=== PATIENT | female | born 1960 | race African-American/Black ===

== ENCOUNTER → 2018-04-26 | Outpatient (CLI) | payer MEDICARE ==
[2018-03-12 11:00] VITALS: BP 184/97
--- NOTE | 2018-05-07 13:23 | RAD ---
DATE: 04/26/2018 EXAM: MAMMO ZULEMA SCREENING BILATERAL HISTORY: Routine screening COMPARISON: 09/02/2016, 01/09/2015 This study was interpreted with the benefit of Computerized Aided Detection (CAD). Breast Density: SCATTERED The breast parenchyma shows scattered fibroglandular densities. Breast parenchyma level B. FINDINGS: 2-D and 3-D tomosynthesis imaging was performed in CC and MLO projections. No new or enlarging breast densities are seen. Benign type calcifications are present. No suspicious microcalcifications are seen. IMPRESSION: Stable mammograms without evidence of malignancy. BI-RADS CATEGORY: 2 BENIGN FINDING(S) RECOMMENDED FOLLOW-UP: 12M 12 MONTH FOLLOW-UP PQRS compliance statement: Patient information was entered into a reminder system with a target due date for the next mammogram. Mammography is a sensitive method for finding small breast cancers, but it does not detect them all and is not a substitute for careful clinical examination. A negative mammogram does not negate a clinically suspicious finding and should not result in delay in biopsying a clinically suspicious abnormality. "Our facility is accredited by the [employer] Mammography Program."
== END | disposition home or self-care (01) ==
LOC: MAMMO 13:45
PROVIDERS: ATTEND Family Medicine
DX: Z12.31 Encounter for screening mammogram for malignant neoplasm of breast (principal)
CPT/HCPCS: 77063; 77067

== ENCOUNTER 2019-07-02 15:01 | Inpatient (IN) | payer MEDICARE ==
[~2019-07-02] VITALS: Ht 175.3 cm; Wt 70.9 kg
[2019-07-02] MEDS ORDERED: ASPIRIN 325 MG TABLET PO ONE (15:15)
[2019-07-02 15:31] LABS: BASO % 1 % (0-3); EOS # 0.1 x10^3/uL (0.0-0.7); EOS % 2 % (0-3); HEMATOCRIT 26.1 % (36.0-47.0); HEMOGLOBIN 8.7 g/dL (12.0-15.5); LYMPH # 1.2 x10^3/uL (1.0-4.8); LYMPH % 26 % (24-48); MEAN CORPUSCULAR HEMOGLOBIN 33 pg (25-35); MEAN CORPUSCULAR HGB CONC 33 g/dL (31-37); MEAN CORPUSCULAR VOLUME 98 fL (79-100); MONO # 0.4 x10^3/uL (0.0-1.1); MONO % 8 % (0-9); NEUT % 64 % (31-73); PLATELET COUNT 185 x10^3/uL (140-400); RED BLOOD COUNT 2.66 x10^6/uL (3.50-5.40); RED CELL DISTRIBUTION WIDTH 13.9 % (11.5-14.5); WHITE BLOOD COUNT 4.7 x10^3/uL (4.0-11.0)
--- NOTE | 2019-07-02 15:40 | PHYS DOC ---
Past Medical History Past Medical History: Diabetes-Type II, GERD, High Cholesterol, Hypertension Past Surgical History: Other Additional Past Surgical Histo: BACK SX Alcohol Use: Occasionally Drug Use: Marijuana Adult General Chief Complaint Chief Complaint: CHEST PAIN HPI HPI Patient is a 59 year old AA female who presents to the emergency department with complaints of left-sided chest pain that radiates down to her stomach and feels like burning for the last 2-1/2 weeks. Patient states that the pain is worse at night when she is lying down. She currently rates her pain as 3 out of 10 on the pain scale, patient states before coming to the emergency room she was seen at urgent care where she was given a GI cocktail. Patient states that the pain has significantly reduced after taking that medication. She reports some shortness of breath, wheezing, and nausea with her pain. She denies any fever, sore throat, headache, vomiting, diarrhea, cough, dysuria, hematuria, increased urinary frequency, or back pain. She states she has a history of high blood pressure, high cholesterol, type 2 diabetes, and GERD. Review of Systems Review of Systems Constitutional: Denies fever or chills [] Eyes: Denies redness, or eye pain [] HENT: Denies nasal congestion or sore throat [] Respiratory: Denies cough or shortness of breath; see HPI[] Cardiovascular: No additional information not addressed in HPI [] GI: Denies vomiting, bloody stools or diarrhea; see HPI : Denies dysuria or hematuria [] Musculoskeletal: Denies back pain or joint pain [] Integument: Denies rash or skin lesions [] Neurologic: Denies headache, focal weakness or sensory changes [] Endocrine: Denies polyuria or polydipsia [] Complete systems were reviewed and found to be within normal limits, except as documented in this note. Current Medications Current Medications Current Medications Medications (Trade) Dose Ordered Sig/Nik Start Time Stop Time Status Last Admin Dose Admin Aspirin (Renetta Aspirin) 325 mg 1X ONCE 07/02/19 15:15 07/02/19 15:20 DC 07/02/19 15:30 325 MG Allergies Allergies Allergies Coded Allergies Type Severity Reaction Last Updated Verified No Known Drug Allergies 03/10/18 No Physical Exam Physical Exam Constitutional: Well developed, well nourished, no acute distress, non-toxic appearance. [] HENT: Normocephalic, atraumatic, bilateral external ears normal, oropharynx moist, no oral exudates, nose normal. [] Eyes: PERRLA, EOMI, conjunctiva normal, no discharge. [] Neck: Normal range of motion, no stridor. [] Cardiovascular:Heart rate regular rhythm, no murmur [] Lungs & Thorax: Bilateral breath sounds clear to auscultation; Respirations even and unlabored, no retractions, no respiratory distress[] Abdomen: Bowel sounds normal, soft, epigastric TTP, no guarding, no rebound tenderness, no masses, no pulsatile masses. [] Skin: Warm, dry, no erythema, no rash. [] Back: No tenderness, no CVA tenderness. [] Extremities: No cyanosis, ROM intact, no edema. [] Neurologic: Alert and oriented X 3, no focal deficits noted. [] Psychologic: Affect normal, judgement normal, mood normal. [] Current Patient Data Vital Signs Vital Signs Date Time Temp Pulse Resp B/P (MAP) Pulse Ox O2 Delivery O2 Flow Rate FiO2 07/02/19 15:17 97.5 70 14 168/91 (116) 99 Room Air 97.5 Lab Values Laboratory Tests Test 07/02/19 15:17 White Blood Count 4.7 x10^3/uL (4.0-11.0) Red Blood Count 2.66 x10^6/uL (3.50-5.40) L Hemoglobin 8.7 g/dL (12.0-15.5) L Hematocrit 26.1 % (36.0-47.0) L Mean Corpuscular Volume 98 fL (79-100) Mean Corpuscular Hemoglobin 33 pg (25-35) Mean Corpuscular Hemoglobin Concent 33 g/dL (31-37) Red Cell Distribution Width 13.9 % (11.5-14.5) Platelet Count 185 x10^3/uL (140-400) Neutrophils (%) (Auto) 64 % (31-73) Lymphocytes (%) (Auto) 26 % (24-48) Monocytes (%) (Auto) 8 % (0-9) Eosinophils (%) (Auto) 2 % (0-3) Basophils (%) (Auto) 1 % (0-3) Neutrophils # (Auto) 3.0 x10^3/uL (1.8-7.7) Lymphocytes # (Auto) 1.2 x10^3/uL (1.0-4.8) Monocytes # (Auto) 0.4 x10^3/uL (0.0-1.1) Eosinophils # (Auto) 0.1 x10^3/uL (0.0-0.7) Basophils # (Auto) 0.0 x10^3/uL (0.0-0.2) Sodium Level 142 mmol/L (136-145) Potassium Level 5.0 mmol/L (3.5-5.1) Chloride Level 110 mmol/L (98-107) H Carbon Dioxide Level 17 mmol/L (21-32) L Anion Gap 15 (6-14) H Blood Urea Nitrogen 58 mg/dL (7-20) H Creatinine 5.1 mg/dL (0.6-1.0) H Estimated GFR (Cockcroft-Gault) 10.5 BUN/Creatinine Ratio 11 (6-20) Glucose Level 151 mg/dL (70-99) H Calcium Level 8.6 mg/dL (8.5-10.1) Magnesium Level 2.0 mg/dL (1.8-2.4) Total Bilirubin 0.4 mg/dL (0.2-1.0) Aspartate Amino Transferase (AST) 103 U/L (15-37) H Alanine Aminotransferase (ALT) 243 U/L (14-59) H Alkaline Phosphatase 131 U/L (46-116) H Creatine Kinase 119 U/L (26-192) Creatine Kinase MB (Mass) 2.8 ng/mL (0.0-3.6) Creatine Kinase MB Relative Index 2.4 % (0-4) Troponin I Quantitative 0.862 ng/mL (0.000-0.055) Total Protein 6.8 g/dL (6.4-8.2) Albumin 3.3 g/dL (3.4-5.0) L Albumin/Globulin Ratio 0.9 (1.0-1.7) L Laboratory Tests 07/02/19 15:17 Laboratory Tests 07/02/19 15:17 EKG EKG 1510- SR leftward axis, prolonged QT, NO STEMI, read by Dr. Del Cid[] Radiology/Procedures Radiology/Procedures PROCEDURE: CHEST PA & LATERAL Chest, PA and Lateral: Technique: PA and lateral views of the chest were obtained. History: Chest pain. Comparison: 03/10/2018. Findings: The heart and pulmonary vasculature appear within normal limits. Mild bibasilar lung airspace opacities likely atelectasis or infiltrates.. The pleural margins are clear. Trace right pleural effusion. Impression: Mild bibasilar lung airspace opacities likely atelectasis or infiltrates.. [] Course & Med Decision Making Course & Med Decision Making Pertinent Labs and Imaging studies reviewed. (See chart for details) 1414-Spoke with Dr. Florez who is the admitting physician, and care was assumed following discussion of patient. Patient's vital signs stable. Patient remains afebrile, appears nontoxic, resp irations even and unlabored. Patient will be admitted to the tele floor. Patient's case and plan of care also discussed with Dr. Del Cid [] Neville Disclaimer Dragon Disclaimer This electronic medical record was generated, in whole or in part, using a voice recognition dictation system. Departure Departure Referrals: THIERNO RODRÍGUEZ MD (PCP) Scripts No Active Prescriptions or Reported Meds PEEWEE KHAN [employer] OFFICE SUPERVISOR Jul 02, 2019 15:40
[2019-07-02 15:41] LABS: PROTHROMBIN TIME PATIENT 13.5 SEC (11.7-14.0)
[2019-07-02 15:44] LABS: CALCIUM 8.6 mg/dL (8.5-10.1); CREATININE 5.1 mg/dL (0.6-1.0); GFR 10.5
[2019-07-02 15:50] LABS: ALBUMIN 3.3 g/dL (3.4-5.0); ALBUMIN/GLOBULIN RATIO 0.9 (1.0-1.7); TOTAL BILIRUBIN 0.4 mg/dL (0.2-1.0); TOTAL PROTEIN 6.8 g/dL (6.4-8.2)
--- NOTE | 2019-07-02 16:07 | RAD ---
Chest, PA and Lateral: Technique: PA and lateral views of the chest were obtained. History: Chest pain. Comparison: 03/10/2018. Findings: The heart and pulmonary vasculature appear within normal limits. Mild bibasilar lung airspace opacities likely atelectasis or infiltrates.. The pleural margins are clear. Trace right pleural effusion. Impression: Mild bibasilar lung airspace opacities likely atelectasis or infiltrates.. Electronically signed by: Isaiah López MD (07/02/2019 4:05 PM) [facility]
[2019-07-02 17:08] LABS: BILIRUBIN,URINE NEGATIVE (NEG); CLARITY,URINE CLEAR; COLOR,URINE YELLOW; NITRITE,URINE NEGATIVE (NEG); PH,URINE 5.5; PROTEIN,URINE >=300 mg/dL (NEG-TRACE); UROBILINOGEN,URINE 0.2 mg/dL (0.2 mg/dL)
[2019-07-02] MEDS ORDERED: FAMOTIDINE 20 MG/2 ML VIAL IVP ONE (17:15)
[2019-07-02 17:19] LABS: SQUAMOUS EPITHELIAL CELL,UR MOD /LPF
[2019-07-02 17:20] LABS: BACTERIA,URINE 0 /HPF (0-FEW)
[2019-07-02 17:25] VITALS: BP 177/93
--- NOTE | 2019-07-02 18:09 | CONS ---
DATE OF CONSULTATION: 07/02/2019 REASONS FOR CONSULTATION: Hypertension and elevated troponin. HISTORY OF PRESENT ILLNESS: The patient is a pleasant 59-year-old woman, who presented to the hospital in the setting of elevated blood pressures and found to have acute renal insufficiency. Her creatinine was elevated at 5.1. Cardiology was asked to evaluate her due to an elevated troponin. She also had some chest discomfort with radiation down her left arm. In the setting of this hypertension and chest pain, she was admitted for further evaluation and treatment. The patient recently moved from [place] for family issues. She denies any prior diagnosis of coronary artery disease or chronic kidney disease. She does have hypertension, diabetes, and gastroesophageal reflux disease. PAST MEDICAL HISTORY: As noted above. SOCIAL HISTORY: The patient denies any alcohol, tobacco, or illicit drug use. She is . FAMILY HISTORY: Noncontributory. REVIEW OF SYSTEMS: Negative for 10 out of 14 systems reviewed, unless otherwise mentioned above in HPI. ALLERGIES: Per the medication record. CURRENT MEDICATIONS: 1. Losartan. 2. Carvedilol. 3. Atorvastatin. 4. Clonidine. 5. Metformin. PHYSICAL EXAMINATION: VITAL SIGNS: Stable with a blood pressure of 160/80, heart rate of 75, respiratory rate of 14. GENERAL: She is alert and oriented, no acute distress. She is thin, ill woman. CARDIAC: Reveals a soft systolic murmur at the right upper sternal border. No obvious murmur, rubs, or gallops. LUNGS: Clear to auscultation. ABDOMEN: Soft, nontender. No abdominal bruits. NEUROLOGIC: No focal deficits. MUSCULOSKELETAL: No trauma. EXTREMITIES: 2+ radial and dorsalis pedis pulses without any edema. DIAGNOSTIC STUDIES: Chest x-ray is unremarkable. EKG is currently pending. Echocardiogram in 2018 revealed normal left ventricular function without any significant valvular abnormalities. IMPRESSION: 1. Acute renal failure, likely secondary to hypertensive nephrosclerosis. 2. History of hypertension. 3. Gastroesophageal reflux disease. 4. Dyslipidemia. RECOMMENDATIONS: We will initiate intravenous fluids and hold her losartan and metformin therapy. Renal consultation is ongoing. We will obtain an echocardiogram and then determine any further course of action. Suspect that her troponin elevation is likely secondary to renal failure and I have low suspicion for an acute coronary syndrome at this time as the patient was not having any symptoms at home prior to presentation over the last 2 weeks. We will continue serial enzymes and EKGs. Thank you for this consultation. DONITA RESTREPO MD DR: NEREIDA/alfredo JOB#: [id number] / [id number]
[2019-07-02] MEDS ORDERED: ATOR20TA58 PO (18:27)
[2019-07-02] MEDS ORDERED: CLON0.2T PO (18:27)
[2019-07-02] MEDS ORDERED: CARV25TA PO (18:27)
[2019-07-02] MEDS ORDERED: METF500T16 PO (18:27)
[2019-07-02] MEDS ORDERED: LOSA100T14 PO (18:27)
[2019-07-02] MEDS: CARVEDILOL 12.5 MG TABLET. PO SCH (19:08)
[2019-07-02] MEDS: IV NORMAL SALINE 1000ML BAG 1,000 ML IV SCH (19:09)
[2019-07-02] MEDS: hydrALAZINE 20 MG/ML VIAL. IVP PRN (19:16)
[2019-07-02 19:40] VITALS: BP 167/97
[2019-07-02 20:15] VITALS: BP 178/103
--- NOTE | 2019-07-02 20:26 | HP ---
ADMIT DATE: 07/02/2019 CHIEF COMPLAINT: Chest pain. HISTORY OF PRESENT ILLNESS: The patient is a pleasant 59-year-old female who I admitted a year or two ago with similar issues. She had chest pain at that time had hypertensive urgency. She states no one has been able to get her blood pressure under control for years, but that I did a relatively good job, but over the past year or so it slowly has crept up again. She has been followed up with her primary care doctor but her pressures seem to be running high. She now has associated chest pain. Her creatinine is also bumped up to 5.1. I discussed the case with Emergency Room physician. We are going to admit the patient and get her pressure down. Consult Cardiology and Nephrology. PAST MEDICAL HISTORY: Hypertension, chronic renal insufficiency, diabetes, back surgery, marijuana use. ALLERGIES: None. FAMILY HISTORY: Diabetes. SOCIAL HISTORY: She does not drink, smoke or take drugs. 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 MEDICATIONS: Reviewed, please refer to the MRAD. REVIEW OF SYSTEMS: GENERAL: No history of weight change, weakness or fevers. SKIN: No bruising, hair changes or rashes. EYES: No blurred, double or loss of vision. NOSE AND THROAT: No history of nosebleeds, hoarseness or sore throat. HEART: No history of palpitations, chest pain or shortness of breath on exertion. LUNGS: Denies cough, hemoptysis, wheezing or shortness of breath. GASTROINTESTINAL: Denies changes in appetite, nausea, vomiting, diarrhea or constipation. GENITOURINARY: No history of frequency, urgency, hesitancy or nocturia. NEUROLOGIC: Denies history of numbness, tingling, tremor or weakness. PSYCHIATRIC: No history of panic, anxiety or depression. ENDOCRINE: No history of heat or cold intolerance, polyuria or polydipsia. EXTREMITIES: Denies muscle weakness, joint pain, pain on walking or stiffness. PHYSICAL EXAMINATION: VITALS: Within normal limits and are stable. GENERAL: No apparent distress. Alert and oriented. HEENT: Normal cephalic atraumatic, external auditory canals are patent EYES: Extraocular muscles are intact, pupils are equally round and reactive to light and accommodation MUSKULOSKELETAL: Well developed, well nourished, good range of motion ENDOCRINE: No thyromegaly was palpated LYMPHATICS: No cervical chain or axillary nodes were noted HEMATOPOIETIC: No bruising NECK: Supple, no JVD, no thyromegaly was noted. LUNGS: Clear to auscultation in all lung mendiola without rhonchi or wheezing. HEART: RRR, S1, S2 present. Peripheral pulses intact, no obvious murmurs were noted. ABDOMEN: Soft, nontender. Positive bowel sounds no organomegaly, normal bowel sounds. EXTREMITIES: Without any cyanosis, clubbing, or edema. Pedal pulses intact, Homans sign is negative. NEUROLOGIC: Normal speech, normal tone. A & O x3, moves all extremities, no obvious focal deficits. PSYCHIATRIC: Normal affect, normal mood. Stable. SKIN: No ulcerations or rashes, good skin turgor, no jaundice. VASCULAR: Good capillary refill, neurovascular bundle appears to be intact. LABORATORY DATA: Hemoglobin is 8.7. Electrolytes: Sodium 142, potassium 5, chloride 110, bicarbonate 17, BUN 58, creatinine 5.1, glucose 151. Troponin 0.8. ASSESSMENT: Hypertensive emergency, [id number] renal failure, elevated troponin and electrolyte disturbance with azotemia, anemia. PLAN: Consult Nephrology. IV fluids, trend her creatinine. Consult Cardiology, serial enzymes, serial EKGs, cardiac monitoring, home meds, deep venous thrombosis prophylaxis. Full code. SUSAN SOLIS DO DR: MORENO/alfredo JOB#: [id number] / [id number]
[2019-07-02] MEDS: cloNIDine HCL 0.2 MG TABLET PO SCH (20:43)
[2019-07-02 21:44] VITALS: BP 156/85
[2019-07-02 23:00] VITALS: BP 172/87
[2019-07-03] VITALS (9 sets, daily range): BP systolic 147–196; BP diastolic 80–104
[2019-07-03] MEDS: hydrALAZINE 20 MG/ML VIAL. IVP PRN ×2 (00:15→05:24)
[2019-07-03] MEDS: LABETALOL 20 MG/4 ML DISP.SYRIN. IVP PRN ×2 (04:12→08:30)
[2019-07-03] MEDS: cloNIDine HCL 0.2 MG TABLET PO SCH ×3 (06:49→20:58)
[2019-07-03] MEDS: IV NORMAL SALINE 1000ML BAG 1,000 ML IV SCH (08:26)
[2019-07-03] MEDS: CARVEDILOL 12.5 MG TABLET. PO SCH ×2 (08:28→17:25)
--- NOTE | 2019-07-03 09:53 | PDOC ---
CARDIOLOGY PROGRESS NOTE SUBJECTIVE: Patient feels poorly. She has bad headache and is hungry. Has not slept. Denies any dyspnea or chest pain. BP difficult to control. OBJECTIVE: Vital Signs/I&O: Vital Signs Date Time Temp Pulse Resp B/P (MAP) Pulse Ox O2 Delivery O2 Flow Rate FiO2 07/03/19 08:30 88 181/91 07/03/19 07:00 98.2 18 97 Room Air 98.2 I & O 07/02/19 07/02/19 07/03/19 15:00 23:00 07:00 Intake Total 240 ml 320 ml Output Total 600 ml Balance 240 ml -280 ml Objective: GEN.: No apparent distress. Alert and oriented. HEENT: Head is normocephalic, atraumatic NECK: Supple. LUNGS: Clear to auscultation. HEART: RRR, S1, S2 present. Peripheral pulses intact ABDOMEN: Soft, nontender. Positive bowel sounds. EXTREMITIES: Without any cyanosis. NEUROLOGIC: Normal speech, normal tone PSYCHIATRIC: Normal affect, normal mood. SKIN: No ulcerations CURRENT MEDICATIONS: Current Medications Medications (Trade) Dose Ordered Sig/Nik Route PRN Reason Start Time Stop Time Status Last Admin Dose Admin Aspirin (Renetta Aspirin) 325 mg 1X ONCE PO 07/02/19 15:15 07/02/19 15:20 DC 07/02/19 15:30 Famotidine (Pepcid Vial) 20 mg 1X ONCE IVP 07/02/19 17:15 07/02/19 17:16 DC 07/02/19 17:19 Hydralazine HCl (Apresoline Inj) 10 mg PRN Q4HRS PRN IVP ELEVATED BP, SEE COMMENTS 07/02/19 18:30 07/03/19 05:24 Labetalol HCl (Normodyne Iv Push) 20 mg PRN Q3HRS PRN IVP HYPERTENSION 07/02/19 18:30 07/03/19 08:30 Sodium Chloride 1,000 ml @ 100 mls/hr Q10H IV 07/02/19 18:30 07/03/19 08:26 Clonidine HCl (Catapres) 0.2 mg TID PO 07/02/19 21:00 07/03/19 06:49 Carvedilol (Coreg) 25 mg BIDWMEALS PO 07/02/19 19:00 07/03/19 08:28 DIAGNOSTIC TESTING: Labs: Laboratory Tests 07/02/19 15:17 Laboratory Tests Test 07/02/19 15:17 07/02/19 16:50 07/03/19 06:10 07/03/19 08:01 White Blood Count 4.7 x10^3/uL (4.0-11.0) Red Blood Count 2.66 x10^6/uL (3.50-5.40) L Hemoglobin 8.7 g/dL (12.0-15.5) L Hematocrit 26.1 % (36.0-47.0) L Mean Corpuscular Volume 98 fL (79-100) Mean Corpuscular Hemoglobin 33 pg (25-35) Mean Corpuscular Hemoglobin Concent 33 g/dL (31-37) Red Cell Distribution Width 13.9 % (11.5-14.5) Platelet Count 185 x10^3/uL (140-400) Neutrophils (%) (Auto) 64 % (31-73) Lymphocytes (%) (Auto) 26 % (24-48) Monocytes (%) (Auto) 8 % (0-9) Eosinophils (%) (Auto) 2 % (0-3) Basophils (%) (Auto) 1 % (0-3) Neutrophils # (Auto) 3.0 x10^3/uL (1.8-7.7) Lymphocytes # (Auto) 1.2 x10^3/uL (1.0-4.8) Monocytes # (Auto) 0.4 x10^3/uL (0.0-1.1) Eosinophils # (Auto) 0.1 x10^3/uL (0.0-0.7) Basophils # (Auto) 0.0 x10^3/uL (0.0-0.2) Prothrombin Time 13.5 SEC (11.7-14.0) Prothromb Time International Ratio 1.1 (0.8-1.1) Activated Partial Thromboplast Time 33 SEC (24-38) Sodium Level 142 mmol/L (136-145) Potassium Level 5.0 mmol/L (3.5-5.1) Chloride Level 110 mmol/L (98-107) H Carbon Dioxide Level 17 mmol/L (21-32) L Anion Gap 15 (6-14) H Blood Urea Nitrogen 58 mg/dL (7-20) H Creatinine 5.1 mg/dL (0.6-1.0) H Estimated GFR (Cockcroft-Gault) 10.5 BUN/Creatinine Ratio 11 (6-20) Glucose Level 151 mg/dL (70-99) H Calcium Level 8.6 mg/dL (8.5-10.1) Total Bilirubin 0.4 mg/dL (0.2-1.0) Aspartate Amino Transf (AST/SGOT) 103 U/L (15-37) H Alkaline Phosphatase 131 U/L (46-116) H Creatine Kinase 119 U/L (26-192) Creatine Kinase MB (Mass) 2.8 ng/mL (0.0-3.6) Creatine Kinase MB Relative Index 2.4 % (0-4) Total Protein 6.8 g/dL (6.4-8.2) Albumin 3.3 g/dL (3.4-5.0) L Albumin/Globulin Ratio 0.9 (1.0-1.7) L Urine Collection Type Unknown Urine Color Yellow Urine Clarity Clear Urine pH 5.5 Urine Specific Remlap 1.020 Urine Protein >=300 mg/dL (NEG-TRACE) Urine Glucose (UA) Negative mg/dL (NEG) Urine Ketones (Stick) Negative mg/dL (NEG) Urine Blood Negative (NEG) Urine Nitrite Negative (NEG) Urine Bilirubin Negative (NEG) Urine Urobilinogen Dipstick 0.2 mg/dL (0.2 mg/dL) Urine Leukocyte Esterase Negative (NEG) Urine RBC 1-2 /HPF (0-2) Urine WBC 1-4 /HPF (0-4) Urine Squamous Epithelial Cells Mod /LPF Urine Bacteria 0 /HPF (0-FEW) Urine Mucus Slight /LPF Cholesterol Level 131 mg/dL (0-200) LDL Cholesterol, Calculated 66 mg/dL (0-100) VLDL Cholesterol, Calculated 21 mg/dL (0-40) Non-HDL Cholesterol Calculated 87 mg/dL (0-129) Cholesterol/HDL Ratio 3.0 Glucose (Fingerstick) 136 mg/dL (70-99) H ASSESSMENT: 1. THEA 2. HTN 3. Elevated troponin PLAN: 1. Continue present meds, added hydralazine 50mg tid 2. Check renal doppler.(Patient is NPO currently) 3. Await nephrology input 4. Repeat EKG 5. Await echo. Thanks. Will follow along. DONITA RESTREPO MD Jul 03, 2019 09:53
--- NOTE | 2019-07-03 10:07 | EKG ---
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
[2019-07-03] MEDS: ACETAMINOPHEN 500 MG TABLET PO PRN ×2 (10:13→19:54)
[2019-07-03 10:58] LABS: BASO % 1 % (0-3); EOS % 0 % (0-3); HEMOGLOBIN 8.6 g/dL (12.0-15.5); LYMPH # 0.8 x10^3/uL (1.0-4.8); LYMPH % 13 % (24-48); MEAN CORPUSCULAR HEMOGLOBIN 32 pg (25-35); MEAN CORPUSCULAR HGB CONC 33 g/dL (31-37); MEAN CORPUSCULAR VOLUME 97 fL (79-100); MONO # 0.3 x10^3/uL (0.0-1.1); MONO % 6 % (0-9); NEUT # 4.7 x10^3/uL (1.8-7.7); NEUT % 80 % (31-73); PLATELET COUNT 187 x10^3/uL (140-400); RED BLOOD COUNT 2.67 x10^6/uL (3.50-5.40); RED CELL DISTRIBUTION WIDTH 14.6 % (11.5-14.5); WHITE BLOOD COUNT 5.8 x10^3/uL (4.0-11.0)
[2019-07-03 11:07] LABS: CALCIUM 8.4 mg/dL (8.5-10.1); CREATININE 4.5 mg/dL (0.6-1.0); GFR 12.1; POTASSIUM 5.1 mmol/L (3.5-5.1)
--- NOTE | 2019-07-03 12:47 | RAD ---
Examination: Ultrasound kidneys HISTORY: History of renal failure COMPARISON: 03/10/2018 FINDINGS: The right kidney measures 13.1 x 4.80 5.0 cm. The left kidney measures 11.8 x 4.5 x 4.5 cm. Echogenic appearing bilateral kidneys. There are multiple cystic structures identified in the right and left kidneys with the largest measuring septated cyst measuring 3 cm in the right kidney .Partially visualized 2 gallstones identified within the gallbladder. Trace bilateral pleural effusions. IMPRESSION: 1. Increased echogenic appearing bilateral kidneys likely medical renal disease. 2. Bilateral renal cysts. There is a septated cyst measuring 3 cm identified in the right kidney similar to prior exam. 3. Cholelithiasis. Electronically signed by: Isaiah López MD (07/03/2019 12:44 PM) [facility]
--- NOTE | 2019-07-03 13:33 | PDOC ---
[facility] PROGRESS NOTE Chief Complaint Chief Complaint Acute renal failure on chronic renal failure Dehydration Probable noncompliance with antihypertensives? Hypertensive emergency, elevated troponin and electrolyte disturbance with azotemia, anemia. History of Present Illness History of Present Illness July 03, 2019 Patient seen and examined Her creatinine is down to 4.5 from 5.1 She is still on IV fluids Chart reviewed Discussed with RN Vitals/I&O Vitals/I&O: Vital Signs Date Time Temp Pulse Resp B/P (MAP) Pulse Ox O2 Delivery O2 Flow Rate FiO2 07/03/19 11:00 97.4 87 18 168/85 (112) 97 Room Air 97.4 I & O 07/02/19 07/02/19 07/03/19 15:00 23:00 07:00 Intake Total 240 ml 320 ml Output Total 600 ml Balance 240 ml -280 ml Physical Exam General: Alert, Oriented X3 Heart: Regular rate, Normal S1 Lungs: Clear Abdomen: Normal bowel sounds, Soft Extremities: No clubbing, No cyanosis Skin: No rashes, No breakdown Labs Labs: Laboratory Tests Test 07/02/19 15:17 07/02/19 16:50 07/02/19 18:15 07/03/19 00:35 White Blood Count 4.7 x10^3/uL (4.0-11.0) Red Blood Count 2.66 x10^6/uL (3.50-5.40) Hemoglobin 8.7 g/dL (12.0-15.5) Hematocrit 26.1 % (36.0-47.0) Mean Corpuscular Volume 98 fL (79-100) Mean Corpuscular Hemoglobin 33 pg (25-35) Mean Corpuscular Hemoglobin Concent 33 g/dL (31-37) Red Cell Distribution Width 13.9 % (11.5-14.5) Platelet Count 185 x10^3/uL (140-400) Neutrophils (%) (Auto) 64 % (31-73) Lymphocytes (%) (Auto) 26 % (24-48) Monocytes (%) (Auto) 8 % (0-9) Eosinophils (%) (Auto) 2 % (0-3) Basophils (%) (Auto) 1 % (0-3) Neutrophils # (Auto) 3.0 x10^3/uL (1.8-7.7) Lymphocytes # (Auto) 1.2 x10^3/uL (1.0-4.8) Monocytes # (Auto) 0.4 x10^3/uL (0.0-1.1) Eosinophils # (Auto) 0.1 x10^3/uL (0.0-0.7) Basophils # (Auto) 0.0 x10^3/uL (0.0-0.2) Prothrombin Time 13.5 SEC (11.7-14.0) Prothromb Time International Ratio 1.1 (0.8-1.1) Activated Partial Thromboplast Time 33 SEC (24-38) Sodium Level 142 mmol/L (136-145) Potassium Level 5.0 mmol/L (3.5-5.1) Chloride Level 110 mmol/L (98-107) Carbon Dioxide Level 17 mmol/L (21-32) Anion Gap 15 (6-14) Blood Urea Nitrogen 58 mg/dL (7-20) Creatinine 5.1 mg/dL (0.6-1.0) Estimated GFR (Cockcroft-Gault) 10.5 BUN/Creatinine Ratio 11 (6-20) Glucose Level 151 mg/dL (70-99) Calcium Level 8.6 mg/dL (8.5-10.1) Magnesium Level 2.0 mg/dL (1.8-2.4) Total Bilirubin 0.4 mg/dL (0.2-1.0) Aspartate Amino Transf (AST/SGOT) 103 U/L (15-37) Alanine Aminotransferase (ALT/SGPT) 243 U/L (14-59) Alkaline Phosphatase 131 U/L (46-116) Creatine Kinase 119 U/L (26-192) Creatine Kinase MB (Mass) 2.8 ng/mL (0.0-3.6) Creatine Kinase MB Relative Index 2.4 % (0-4) Troponin I Quantitative 0.862 ng/mL (0.000-0.055) 0.833 ng/mL (0.000-0.055) 0.750 ng/mL (0.000-0.055) Total Protein 6.8 g/dL (6.4-8.2) Albumin 3.3 g/dL (3.4-5.0) Albumin/Globulin Ratio 0.9 (1.0-1.7) Urine Collection Type Unknown Urine Color Yellow Urine Clarity Clear Urine pH 5.5 Urine Specific [place] 1.020 Urine Protein >=300 mg/dL (NEG-TRACE) Urine Glucose (UA) Negative mg/dL (NEG) Urine Ketones (Stick) Negative mg/dL (NEG) Urine Blood Negative (NEG) Urine Nitrite Negative (NEG) Urine Bilirubin Negative (NEG) Urine Urobilinogen Dipstick 0.2 mg/dL (0.2 mg/dL) Urine Leukocyte Esterase Negative (NEG) Urine RBC 1-2 /HPF (0-2) Urine WBC 1-4 /HPF (0-4) Urine Squamous Epithelial Cells Mod /LPF Urine Bacteria 0 /HPF (0-FEW) Urine Mucus Slight /LPF Test 07/03/19 06:10 07/03/19 08:01 07/03/19 10:45 07/03/19 11:47 Troponin I Quantitative 0.707 ng/mL (0.000-0.055) Triglycerides Level 105 mg/dL (0-150) Cholesterol Level 131 mg/dL (0-200) LDL Cholesterol, Calculated 66 mg/dL (0-100) VLDL Cholesterol, Calculated 21 mg/dL (0-40) Non-HDL Cholesterol Calculated 87 mg/dL (0-129) HDL Cholesterol 44 mg/dL (40-60) Cholesterol/HDL Ratio 3.0 Glucose (Fingerstick) 136 mg/dL (70-99) 111 mg/dL (70-99) White Blood Count 5.8 x10^3/uL (4.0-11.0) Red Blood Count 2.67 x10^6/uL (3.50-5.40) Hemoglobin 8.6 g/dL (12.0-15.5) Hematocrit 26.0 % (36.0-47.0) Mean Corpuscular Volume 97 fL (79-100) Mean Corpuscular Hemoglobin 32 pg (25-35) Mean Corpuscular Hemoglobin Concent 33 g/dL (31-37) Red Cell Distribution Width 14.6 % (11.5-14.5) Platelet Count 187 x10^3/uL (140-400) Neutrophils (%) (Auto) 80 % (31-73) Lymphocytes (%) (Auto) 13 % (24-48) Monocytes (%) (Auto) 6 % (0-9) Eosinophils (%) (Auto) 0 % (0-3) Basophils (%) (Auto) 1 % (0-3) Neutrophils # (Auto) 4.7 x10^3/uL (1.8-7.7) Lymphocytes # (Auto) 0.8 x10^3/uL (1.0-4.8) Monocytes # (Auto) 0.3 x10^3/uL (0.0-1.1) Eosinophils # (Auto) 0.0 x10^3/uL (0.0-0.7) Basophils # (Auto) 0.0 x10^3/uL (0.0-0.2) Sodium Level 141 mmol/L (136-145) Potassium Level 5.1 mmol/L (3.5-5.1) Chloride Level 112 mmol/L (98-107) Carbon Dioxide Level 14 mmol/L (21-32) Anion Gap 15 (6-14) Blood Urea Nitrogen 57 mg/dL (7-20) Creatinine 4.5 mg/dL (0.6-1.0) Estimated GFR (Cockcroft-Gault) 12.1 Glucose Level 127 mg/dL (70-99) Calcium Level 8.4 mg/dL (8.5-10.1) Review of Systems Review of Systems: Complains of weakness denies chest pain Assessment and Plan Assessmemt and Plan Problems Medical Problems: (1) Acute renal failure Status: Acute (2) Elevated troponin Status: Acute Acute renal failure on chronic renal failure Dehydration Probable noncompliance with antihypertensives? Hypertensive emergency, elevated troponin and electrolyte disturbance with azotemia, anemia. Plan Continue IV hydration and trend her creatinine I estimate her GFR to be about 17 right now perhaps even a little lower She is close to needing dialysis Hopefully we can get her cutting down to 3 or lower Nephrology is following Home meds PT OT DVT prophylaxis Full code Appreciate subspecialist input Long-term prognosis guarded Comment Review of Relevant I have reviewed the following items roque (where applicable) has been applied. Medications: Current Medications Medications (Trade) Dose Ordered Sig/Nik Route PRN Reason Start Time Stop Time Status Last Admin Dose Admin Aspirin (Renetta Aspirin) 325 mg 1X ONCE PO 07/02/19 15:15 07/02/19 15:20 DC 07/02/19 15:30 Famotidine (Pepcid Vial) 20 mg 1X ONCE IVP 07/02/19 17:15 07/02/19 17:16 DC 07/02/19 17:19 Hydralazine HCl (Apresoline Inj) 10 mg PRN Q4HRS PRN IVP ELEVATED BP, SEE COMMENTS 07/02/19 18:30 07/03/19 05:24 Labetalol HCl (Normodyne Iv Push) 20 mg PRN Q3HRS PRN IVP HYPERTENSION 07/02/19 18:30 07/03/19 08:30 Sodium Chloride 1,000 ml @ 100 mls/hr Q10H IV 07/02/19 18:30 07/03/19 08:26 Clonidine HCl (Catapres) 0.2 mg TID PO 07/02/19 21:00 07/03/19 06:49 Carvedilol (Coreg) 25 mg BIDWMEALS PO 07/02/19 19:00 07/03/19 08:28 Hydralazine HCl (Apresoline) 50 mg TID PO 07/03/19 09:45 07/03/19 10:05 Acetaminophen (Tylenol) 500 mg PRN Q6HRS PRN PO MILD PAIN / TEMP 07/03/19 10:15 07/03/19 10:13 SUSAN SOLIS III DO Jul 03, 2019 13:33
[2019-07-03] MEDS: SODIUM BICARBONATE IV SCH (15:15)
[2019-07-03] MEDS: STERILE WATER IV SCH (15:15)
[2019-07-03] MEDS: SODIUM CHLORIDE IV SCH (15:15)
[2019-07-03] MEDS: TEMAZEPAM 15 MG CAPSULE PO PRN (22:11)
[2019-07-04] VITALS (9 sets, daily range): BP systolic 182–217; BP diastolic 88–113
--- NOTE | 2019-07-04 01:02 | CONS ---
DATE OF CONSULTATION: REQUESTING PHYSICIAN: Hospitalist. REASON FOR CONSULTATION: Renal failure. HISTORY OF PRESENT ILLNESS: This is a 59-year-old female recently relocated [facility] from [place]. The patient has a history of diabetes mellitus approximately 10 years by her report. She denies history of diabetic retinopathy. She also has a history of longstanding hypertension, which she states is "under better control." Due to increased level of azotemia, Nephrology evaluation is requested. There is no history of NSAID use. PAST MEDICAL HISTORY: Hypertension, chronic kidney disease -- specifics unclear other than Cardiology recalls her creatinine and BUN elevated 2 years prior to this evaluation. Hyperlipidemia. ALLERGIES: None. MEDICATIONS: Reviewed per medication list. FAMILY HISTORY: Noncontributory. SOCIAL HISTORY: The patient resides independently. REVIEW OF SYSTEMS: No headache, sinus problem, nasal drainage, epistaxis, change in vision or hearing. No difficulty swallowing. No fever, chills, cough, sputum production or hemoptysis. No chest pain, shortness of breath, PND, orthopnea, dyspnea on exertion. No abdominal pain. No nausea, vomiting or diarrhea. No seizures or malignancies. PHYSICAL EXAMINATION: GENERAL APPEARANCE: The patient is awake, conversant. HEENT: Clear. NECK: No increased JVD. No thyromegaly, mass or adenopathy. LUNGS: Clear. CARDIAC: Without S3 or rub. ABDOMEN: Soft, nontender, no bruits. EXTREMITIES: Without edema. NEUROLOGIC: Nonfocal, nonlocalized. PSYCHIATRIC: Good attention to detail, appropriate affect. LABORATORY DATA: Hemoglobin 8.6, hematocrit 26%. Sodium 141, potassium 5.1, chloride 112, CO2 of 14, BUN is 57, creatinine 4.5, calcium 8.4. Urinalysis; specific gravity is 1.020, protein greater than 300 mg percent. Ultrasound: Renal ultrasound, right kidney 13.1 cm, left 11.8 cm. No hydronephrosis or hydroureter. IMPRESSION: 1. Renal failure, anticipate chronic on the basis of hypertensive nephrosclerosis and diabetes mellitus. If does not improve, it is end-stage renal disease status. 2. Metabolic acidosis secondary to #1. RECOMMENDATIONS: 1. IV fluid administration includes sodium bicarbonate. 2. Renal ultrasound -- done. 3. A 24-hour urine total protein. 4. If does not improve, we will initiate dialysis. We will follow. THIERNO BELTRE MD DR: NANCY/alfredo JOB#: [id number] / [id number]
[2019-07-04] MEDS: STERILE WATER IV SCH (03:32)
[2019-07-04] MEDS: SODIUM BICARBONATE IV SCH (03:32)
[2019-07-04] MEDS: SODIUM CHLORIDE IV SCH (03:32)
[2019-07-04] MEDS: hydrALAZINE 20 MG/ML VIAL. IVP PRN (03:37)
[2019-07-04] MEDS: ACETAMINOPHEN 500 MG TABLET PO PRN ×2 (05:31→23:08)
[2019-07-04] MEDS: LABETALOL 20 MG/4 ML DISP.SYRIN. IVP PRN (05:31)
[2019-07-04 05:48] LABS: ALBUMIN 2.8 g/dL (3.4-5.0); ALBUMIN/GLOBULIN RATIO 0.9 (1.0-1.7); CREATININE 4.6 mg/dL (0.6-1.0); GFR 11.8; POTASSIUM 4.2 mmol/L (3.5-5.1); TOTAL BILIRUBIN 0.4 mg/dL (0.2-1.0); TOTAL PROTEIN 5.8 g/dL (6.4-8.2)
--- NOTE | 2019-07-04 06:37 | EKG ---
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
[2019-07-04] MEDS: CARVEDILOL 12.5 MG TABLET. PO SCH (09:14)
[2019-07-04] MEDS: cloNIDine HCL 0.2 MG TABLET PO SCH ×3 (09:15→20:24)
--- NOTE | 2019-07-04 09:56 | PDOC ---
MELINA ANGEL MARIA DEL CARMEN 07/04/19 0956: CARDIO Progress Notes Date and Time Date of Service 07/04/19 Time of Evaluation 0950 Subjective Subjective: No shortness of breath, No Palpitations, No Dizziness, Other (burning sensation in chest about 3 am every night) Vitals Vitals Vital Signs Date Time Temp Pulse Resp B/P (MAP) Pulse Ox O2 Delivery O2 Flow Rate FiO2 07/04/19 09:15 229/118 07/04/19 09:15 86 07/04/19 07:00 98.1 22 94 Nasal Cannula 1.0 98.1 Weight Weight [ ] Input and Output Intake and Output Intake and Output 07/04/19 06:59 Intake Total 1605 ml Output Total 300 ml Balance 1305 ml Intake Oral 780 ml IV Total 825 ml Output Urine Total 300 ml Laboratory Labs Laboratory Tests Test 07/03/19 10:45 07/03/19 11:47 07/03/19 17:11 07/03/19 20:57 White Blood Count 5.8 x10^3/uL (4.0-11.0) Red Blood Count 2.67 x10^6/uL (3.50-5.40) Hemoglobin 8.6 g/dL (12.0-15.5) Hematocrit 26.0 % (36.0-47.0) Mean Corpuscular Volume 97 fL (79-100) Mean Corpuscular Hemoglobin 32 pg (25-35) Mean Corpuscular Hemoglobin Concent 33 g/dL (31-37) Red Cell Distribution Width 14.6 % (11.5-14.5) Platelet Count 187 x10^3/uL (140-400) Neutrophils (%) (Auto) 80 % (31-73) Lymphocytes (%) (Auto) 13 % (24-48) Monocytes (%) (Auto) 6 % (0-9) Eosinophils (%) (Auto) 0 % (0-3) Basophils (%) (Auto) 1 % (0-3) Neutrophils # (Auto) 4.7 x10^3/uL (1.8-7.7) Lymphocytes # (Auto) 0.8 x10^3/uL (1.0-4.8) Monocytes # (Auto) 0.3 x10^3/uL (0.0-1.1) Eosinophils # (Auto) 0.0 x10^3/uL (0.0-0.7) Basophils # (Auto) 0.0 x10^3/uL (0.0-0.2) Sodium Level 141 mmol/L (136-145) Potassium Level 5.1 mmol/L (3.5-5.1) Chloride Level 112 mmol/L (98-107) Carbon Dioxide Level 14 mmol/L (21-32) Anion Gap 15 (6-14) Blood Urea Nitrogen 57 mg/dL (7-20) Creatinine 4.5 mg/dL (0.6-1.0) Estimated GFR (Cockcroft-Gault) 12.1 Glucose Level 127 mg/dL (70-99) Calcium Level 8.4 mg/dL (8.5-10.1) Glucose (Fingerstick) 111 mg/dL (70-99) 140 mg/dL (70-99) 141 mg/dL (70-99) Test 07/04/19 03:35 07/04/19 07:34 Sodium Level 143 mmol/L (136-145) Potassium Level 4.2 mmol/L (3.5-5.1) Chloride Level 111 mmol/L (98-107) Carbon Dioxide Level 18 mmol/L (21-32) Anion Gap 14 (6-14) Blood Urea Nitrogen 52 mg/dL (7-20) Creatinine 4.6 mg/dL (0.6-1.0) Estimated GFR (Cockcroft-Gault) 11.8 BUN/Creatinine Ratio 11 (6-20) Glucose Level 113 mg/dL (70-99) Calcium Level 8.0 mg/dL (8.5-10.1) Total Bilirubin 0.4 mg/dL (0.2-1.0) Aspartate Amino Transf (AST/SGOT) 42 U/L (15-37) Alanine Aminotransferase (ALT/SGPT) 138 U/L (14-59) Alkaline Phosphatase 101 U/L (46-116) Total Protein 5.8 g/dL (6.4-8.2) Albumin 2.8 g/dL (3.4-5.0) Albumin/Globulin Ratio 0.9 (1.0-1.7) Glucose (Fingerstick) 157 mg/dL (70-99) Physical Exam HEENT: Neck Supple W Full Motion Chest: Symmetric LUNGS: Clear to Auscultation Heart: S1S2, RRR, murmurs (2/6 systolic murmur ) Assessment Assessment 1. THEA on probable CKD; 24-hour urine in progress. 2. Hypertensive urgency; blood pressure continues to be consistently elevated 3. NSTEMI; peak 0.8. Most probably type II, demand ischemia in the setting of THEA. 4. Hyperlipidemia 5.. Diabetes, II 6. Elevated LFTs 7. GERD; having burning in chest every night about 3am. Recommendations Await echo Renal artery duplex to r/o GRACY Increase hydralazine. Add norvasc. No ACEi, ARB with THEA Add PPI Plan for outpatient echo unless echo significantly abnormal. DONITA RESTREPO MD 07/04/192036: CARDIO Progress Notes Plan Plan Patient seen and examined. Agree with above nurse practitioner note. I had a long discussion today with the patient regarding her echo findings and the possibility of requiring further cardiac evaluation with a coronary angiography in the setting of her acute renal failure. Current plans are for initiation of dialysis. If the patient is willing after initiation of dialysis we could consider cardiac catheterization on July 07. Otherwise, we will plan for outpatient ischemic testing or outpatient cardiac catheterization to evaluate her cardio myopathy which I suspect is mostly related to her end-stage renal disease and uncontrolled hypertension but given her risk factors we cannot rule out any occult ischemic heart disease. MELINA ANGEL APRN Jul 04, 2019 09:56 DONITA RESTREPO MD Jul 04, 2019 20:37
[2019-07-04] MEDS: LABETALOL HCL 100 MG TABLET. PO SCH ×2 (11:10→20:24)
[2019-07-04] MEDS: amLODIPine BESYLATE 5 MG TABLET PO SCH (11:11)
[2019-07-04] MEDS: PANTOPRAZOLE 40 MG TABLET.DR. PO SCH (11:11)
--- NOTE | 2019-07-04 12:31 | NUR ---
SS following for discharge planning. SS reviewed pt chart. Pt is from home and is currently on room air. Pt's RN reported that pt may need OPHD. SS requested that serology labs and chest x-ray be ordered if OPHD set up is needed. SS will continue to follow for discharge planning.
--- NOTE | 2019-07-04 12:55 | PDOC ---
[facility] [facility] PROGRESS NOTE Chief Complaint Chief Complaint Acute renal failure on chronic renal failure Dehydration Probable noncompliance with antihypertensives? Hypertensive emergency, elevated troponin and electrolyte disturbance with azotemia, anemia. History of Present Illness History of Present Illness July 03, 2019 Patient seen and examined Her creatinine is down to 4.5 from 5.1 She is still on IV fluids Chart reviewed Discussed with RN 07/04/19 Patient seen and examined Her creatinine actually went up to 4.6 24-hour urine in progress Chart reviewed Discussed with RN She is going need dialysis either this admit or soon Vitals/I&O Vitals/I&O: Vital Signs Date Time Temp Pulse Resp B/P (MAP) Pulse Ox O2 Delivery O2 Flow Rate FiO2 07/04/19 11:11 216/112 07/04/19 11:10 79 07/04/19 10:43 97.8 20 96 Nasal Cannula 2.0 97.8 I & O 07/03/19 07/03/19 07/04/19 15:00 23:00 07:00 Intake Total 1005 ml 600 ml Output Total 100 ml 200 ml Balance 905 ml 400 ml Physical Exam General: Alert, Oriented X3 Heart: Regular rate, Normal S1 Lungs: Clear Abdomen: Normal bowel sounds, Soft Extremities: No clubbing, No cyanosis Skin: No rashes, No breakdown Labs Labs: Laboratory Tests Test 07/03/19 17:11 07/03/19 20:57 07/04/19 03:35 07/04/19 07:34 Glucose (Fingerstick) 140 mg/dL (70-99) 141 mg/dL (70-99) 157 mg/dL (70-99) Sodium Level 143 mmol/L (136-145) Potassium Level 4.2 mmol/L (3.5-5.1) Chloride Level 111 mmol/L (98-107) Carbon Dioxide Level 18 mmol/L (21-32) Anion Gap 14 (6-14) Blood Urea Nitrogen 52 mg/dL (7-20) Creatinine 4.6 mg/dL (0.6-1.0) Estimated GFR (Cockcroft-Gault) 11.8 BUN/Creatinine Ratio 11 (6-20) Glucose Level 113 mg/dL (70-99) Calcium Level 8.0 mg/dL (8.5-10.1) Total Bilirubin 0.4 mg/dL (0.2-1.0) Aspartate Amino Transf (AST/SGOT) 42 U/L (15-37) Alanine Aminotransferase (ALT/SGPT) 138 U/L (14-59) Alkaline Phosphatase 101 U/L (46-116) Total Protein 5.8 g/dL (6.4-8.2) Albumin 2.8 g/dL (3.4-5.0) Albumin/Globulin Ratio 0.9 (1.0-1.7) Test 07/04/19 11:12 07/04/19 11:13 D-Dimer (Cary) 1.05 ug/mlFEU (0.00-0.50) Glucose (Fingerstick) 139 mg/dL (70-99) Assessment and Plan Assessmemt and Plan Problems Medical Problems: (1) Acute renal failure Status: Acute (2) Elevated troponin Status: Acute Acute renal failure on chronic renal failure Dehydration Probable noncompliance with antihypertensives? Hypertensive emergency, elevated troponin and electrolyte disturbance with azotemia, anemia. Plan Await 24-hour urine I estimate her GFR to be about 17 right now perhaps even a little lower She is close to needing dialysis Hopefully we can get her cutting down to 3 or lower Nephrology is following Home meds PT OT DVT prophylaxis Full code Appreciate subspecialist input Long-term prognosis guarded Comment Review of Relevant I have reviewed the following items roque (where applicable) has been applied. Medications: Current Medications Medications (Trade) Dose Ordered Sig/Nik Route PRN Reason Start Time Stop Time Status Last Admin Dose Admin Temazepam (Restoril) 15 mg PRN QHS PRN PO INSOMNIA 07/03/19 14:15 07/03/19 22:11 Sodium Chloride 38.5 meq/Sodium Bicarbonate 100 meq/Sterile Water 1,109.625 ml @ 100 mls/hr Q11H6M IV 07/03/19 15:00 07/04/19 03:32 Pantoprazole Sodium (Protonix) 40 mg DAILYAC PO 07/04/19 10:00 07/04/19 11:11 Labetalol HCl (Trandate) 100 mg BID PO 07/04/19 10:30 07/04/19 11:10 Amlodipine Besylate (Norvasc) 5 mg DAILY PO 07/04/19 10:30 07/04/19 11:11 SUSAN SOLIS III DO Jul 04, 2019 12:55
--- NOTE | 2019-07-04 14:02 | RAD ---
MR#: [id number] Date of Study: 07/04/2019 Ordering Physician: MELINA ANGEL, Referring Physician: MELINA ANGEL, Tech: Guzman Mora MBA, RDMS, RVT, RDCS, RTR APPROVED REPORT Patient Location: IN-PATIENT Indications Uncontrolled HTN Renal Artery Doppler Right Renal Artery Left Renal Arter y Proximal 85.0/28.0 cm/secProximal 71.0/16.0 cm/sec Mid 43.0/10.0 cm/secMid 55.0/13.0 cm/sec Distal 54.0/10.0 cm/secDistal 30.0/7.0 cm/sec Renal/Aorta Ratio 1.10Renal/Aorta Ratio 0.92 Prox. Resistive Index 0.67Prox. Resistive Index 0.78 Mid Resistive Index 0.77Mid Resistive Index 0.76 Distal Resistive Index 0.81Distal Resistive Index 0.76 Rt. Segmental A. 31.0/9.0 cm/secLt. Segmental A. 31.0/7.0 cm/sec Renal Measurements RightLeft Kidney Zrgxcc62.9 cm cmKidney Ickhdz67.7 cm cm Right Additional FindingsLeft Additional Findings Findings The abdominal aorta has mild diffuse irregularities without any obvious aneurysmal dilatation. Please see accompanying renal ultrasound for full details regarding parenchymal evaluation Spectral waveforms and color Doppler involving the proximal, mid and distal renal arteries are within normal limits. Normal renal to aortic ratios bilaterally. Normal renal size bilaterally. Critical Notification Critical Value: No <Conclusion> No significant renal arterial stenosis identified Signed by : Ventura Pisano, Electronically Approved : 07/04/2019 14:01:26
--- NOTE | 2019-07-04 14:51 | CARD ---
MR#: [id number] Date of Study: 07/04/2019 Ordering Physician: DONITA RESTREPO, Referring Physician: DONITA RESTREPO, Tech: Selam Sandhu APPROVED REPORT EXAM: Two-dimensional and M-mode echocardiogram with Doppler and color Doppler. Other Information Quality : GoodHR: 83bpm INDICATION Chest Pain RISK FACTORS Hypertension Hyperlipidemia Diabetes 2D DIMENSIONS RVDd3.3 (2.9-3.5cm)Left Atrium(2D)3.8 (1.6-4.0cm) IVSd1.5 (0.7-1.1cm)Aortic Root(2D)2.8 (2.0-3.7cm) LVDd5.7 (3.9-5.9cm)LVOT Diameter2.1 (1.8-2.4cm) PWd1.4 (0.7-1.1cm)LVDs3.8 (2.5-4.0cm) FS (%) 33.2 %SV97.5 ml LVEF(%)61.0 (>50%) Aortic Valve AoV Peak Riley.220.5cm/sAoV VTI38.0cm AO Peak GR.19.5mmHgLVOT Peak Riley.129.7cm/s LVOT VTI 24.94cmAO Mean GR.11mmHg HANK (VMAX)1.32fb6EKB (VTI)2.27cm2 Mitral Valve MV E Osymffdx88.2cm/sMV DECEL [id number] MV A Lyattxzr00.2cm/sMV E Mean Gr.2mmHg MV UMZ74wiM/A Ratio0.8 MVA (PHT)5.44cm2 TDI E/Lateral E'15.3E/Medial E'11.7 Pulmonary Valve PV Peak Qdgvrgyx53.9cm/sPV Peak Grad.3mmHg Tricuspid Valve TR P. Nwadhjby027bg/sRAP [id number] TR Peak Gr.08eiIoYSUJ36ahGv Pulmonary Vein S1 Nkhewlqk91.5cm/sD2 Nginzsyv18.1cm/s PVa [id number] LEFT VENTRICLE The Left Ventricle is borderline dilated. There is moderate concentric left ventricular hypertrophy. Hypokinesis of mid to distal anterior and anteroseptal thapa and also the apical wall. The Ejection F raction is 40%. Transmitral Doppler flow pattern is Grade I-abnormal relaxation pattern. RIGHT VENTRICLE The right ventricle is normal size. There is normal right ventricular wall thickness. The right ventr icular systolic function is normal. ATRIA The left atrium is borderline dilated. The right atrium size is normal. The interatrial septum is int act with no evidence for an atrial septal defect or patent foramen ovale as noted on 2-D or Doppler i maging. AORTIC VALVE The aortic valve is thickened but opens well. Doppler and Color Flow revealed trace aortic regurgitat ion. There is no significant aortic valvular stenosis. MITRAL VALVE The mitral valve is thickened but opens well. There is no evidence of mitral valve prolapse. There is no mitral valve stenosis. Doppler and Color-flow revealed trace mitral regurgitation. TRICUSPID VALVE The tricuspid valve is normal in structure and function. Doppler and Color Flow revealed mild to mode rate tricuspid regurgitation with an estimated PAP of 51 mmHg. There is no tricuspid valve stenosis. PULMONIC VALVE The pulmonic valve is not well visualized. Doppler and Color Flow revealed no pulmonic valvular regur gitation. GREAT VESSELS The aortic root is normal in size. The IVC is normal in size and collapses >50% with inspiration. PERICARDIAL EFFUSION There is no evidence of significant pericardial effusion. Critical Notification Critical Value: No <Conclusion> Hypokinesis of mid to distal anterior and anteroseptal thapa and also the apical wall. The Ejection Fraction is 40%. Transmitral Doppler flow pattern is Grade I-abnormal relaxation pattern. Trace mitral regurgitation. Mild to moderate tricuspid regurgitation with an estimated PAP of 51 mmHg. There is no evidence of significant pericardial effusion. Signed by : Harris Hallman, Electronically Approved : 07/04/2019 14:50:42
--- NOTE | 2019-07-04 14:57 | PDOC ---
PROGRESS NOTES Subjective Subjective SEEN IN FOLLOW UP OF RENAL FAILURE Objective Objective Vital Signs Date Time Temp Pulse Resp B/P (MAP) Pulse Ox O2 Delivery O2 Flow Rate FiO2 07/04/19 14:46 200/109 07/04/19 11:10 79 07/04/19 10:43 97.8 20 96 Nasal Cannula 2.0 97.8 Intake and Output 07/04/19 07:00 Intake Total 1605 ml Output Total 300 ml Balance 1305 ml Intake Oral 780 ml IV Total 825 ml Output Urine Total 300 ml Physical Exam Abdomen: Normal bowel sounds, Soft, No tenderness, No hepatosplenomegaly, No masses Heart: Regular rate, Normal S1, Normal S2, No murmurs, Gallops Extremities: No clubbing, No cyanosis, No edema, Normal pulses, No tenderness/swelling General: Alert, Oriented X3, Cooperative, No acute distress Lungs: Clear to auscultation, Normal air movement Neuro: Normal gait, Normal speech, Normal tone, Sensation intact, Reflexes 2+ Psych/Mental Status: Mental status NL, Mood NL Diagnosis RENAL FAILURE: ESRD Assessment Assessment Problems Medical Problems: (1) Acute renal failure Status: Acute (2) Elevated troponin Status: Acute Plan Plan of Care RENAL US IS OK WITHOUT OBSTRUCTION. KIDNEYS STILL GOOD SIZE. GFR IS ESRD RANGE. SHE IS AGREEABLE TO DIALYSIS. WILL HAVE PERMCATH PLACED TODAY AND DIALYSIS TOMORROW AND THURSDAY Comment Review of Relevant I have reviewed the following items roque (where applicable) has been applied. Labs Laboratory Tests Test 07/02/19 15:17 07/02/19 16:50 07/02/19 18:15 07/03/19 00:35 White Blood Count 4.7 x10^3/uL (4.0-11.0) Red Blood Count 2.66 x10^6/uL (3.50-5.40) Hemoglobin 8.7 g/dL (12.0-15.5) Hematocrit 26.1 % (36.0-47.0) Mean Corpuscular Volume 98 fL (79-100) Mean Corpuscular Hemoglobin 33 pg (25-35) Mean Corpuscular Hemoglobin Concent 33 g/dL (31-37) Red Cell Distribution Width 13.9 % (11.5-14.5) Platelet Count 185 x10^3/uL (140-400) Neutrophils (%) (Auto) 64 % (31-73) Lymphocytes (%) (Auto) 26 % (24-48) Monocytes (%) (Auto) 8 % (0-9) Eosinophils (%) (Auto) 2 % (0-3) Basophils (%) (Auto) 1 % (0-3) Neutrophils # (Auto) 3.0 x10^3/uL (1.8-7.7) Lymphocytes # (Auto) 1.2 x10^3/uL (1.0-4.8) Monocytes # (Auto) 0.4 x10^3/uL (0.0-1.1) Eosinophils # (Auto) 0.1 x10^3/uL (0.0-0.7) Basophils # (Auto) 0.0 x10^3/uL (0.0-0.2) Prothrombin Time 13.5 SEC (11.7-14.0) Prothromb Time International Ratio 1.1 (0.8-1.1) Activated Partial Thromboplast Time 33 SEC (24-38) Sodium Level 142 mmol/L (136-145) Potassium Level 5.0 mmol/L (3.5-5.1) Chloride Level 110 mmol/L (98-107) Carbon Dioxide Level 17 mmol/L (21-32) Anion Gap 15 (6-14) Blood Urea Nitrogen 58 mg/dL (7-20) Creatinine 5.1 mg/dL (0.6-1.0) Estimated GFR (Cockcroft-Gault) 10.5 BUN/Creatinine Ratio 11 (6-20) Glucose Level 151 mg/dL (70-99) Calcium Level 8.6 mg/dL (8.5-10.1) Magnesium Level 2.0 mg/dL (1.8-2.4) Total Bilirubin 0.4 mg/dL (0.2-1.0) Aspartate Amino Transf (AST/SGOT) 103 U/L (15-37) Alanine Aminotransferase (ALT/SGPT) 243 U/L (14-59) Alkaline Phosphatase 131 U/L (46-116) Creatine Kinase 119 U/L (26-192) Creatine Kinase MB (Mass) 2.8 ng/mL (0.0-3.6) Creatine Kinase MB Relative Index 2.4 % (0-4) Troponin I Quantitative 0.862 ng/mL (0.000-0.055) 0.833 ng/mL (0.000-0.055) 0.750 ng/mL (0.000-0.055) Total Protein 6.8 g/dL (6.4-8.2) Albumin 3.3 g/dL (3.4-5.0) Albumin/Globulin Ratio 0.9 (1.0-1.7) Urine Collection Type Unknown Urine Color Yellow Urine Clarity Clear Urine pH 5.5 Urine Specific Esmond 1.020 Urine Protein >=300 mg/dL (NEG-TRACE) Urine Glucose (UA) Negative mg/dL (NEG) Urine Ketones (Stick) Negative mg/dL (NEG) Urine Blood Negative (NEG) Urine Nitrite Negative (NEG) Urine Bilirubin Negative (NEG) Urine Urobilinogen Dipstick 0.2 mg/dL (0.2 mg/dL) Urine Leukocyte Esterase Negative (NEG) Urine RBC 1-2 /HPF (0-2) Urine WBC 1-4 /HPF (0-4) Urine Squamous Epithelial Cells Mod /LPF Urine Bacteria 0 /HPF (0-FEW) Urine Mucus Slight /LPF Test 07/03/19 06:10 07/03/19 08:01 07/03/19 10:45 07/03/19 11:47 Troponin I Quantitative 0.707 ng/mL (0.000-0.055) Triglycerides Level 105 mg/dL (0-150) Cholesterol Level 131 mg/dL (0-200) LDL Cholesterol, Calculated 66 mg/dL (0-100) VLDL Cholesterol, Calculated 21 mg/dL (0-40) Non-HDL Cholesterol Calculated 87 mg/dL (0-129) HDL Cholesterol 44 mg/dL (40-60) Cholesterol/HDL Ratio 3.0 Glucose (Fingerstick) 136 mg/dL (70-99) 111 mg/dL (70-99) White Blood Count 5.8 x10^3/uL (4.0-11.0) Red Blood Count 2.67 x10^6/uL (3.50-5.40) Hemoglobin 8.6 g/dL (12.0-15.5) Hematocrit 26.0 % (36.0-47.0) Mean Corpuscular Volume 97 fL (79-100) Mean Corpuscular Hemoglobin 32 pg (25-35) Mean Corpuscular Hemoglobin Concent 33 g/dL (31-37) Red Cell Distribution Width 14.6 % (11.5-14.5) Platelet Count 187 x10^3/uL (140-400) Neutrophils (%) (Auto) 80 % (31-73) Lymphocytes (%) (Auto) 13 % (24-48) Monocytes (%) (Auto) 6 % (0-9) Eosinophils (%) (Auto) 0 % (0-3) Basophils (%) (Auto) 1 % (0-3) Neutrophils # (Auto) 4.7 x10^3/uL (1.8-7.7) Lymphocytes # (Auto) 0.8 x10^3/uL (1.0-4.8) Monocytes # (Auto) 0.3 x10^3/uL (0.0-1.1) Eosinophils # (Auto) 0.0 x10^3/uL (0.0-0.7) Basophils # (Auto) 0.0 x10^3/uL (0.0-0.2) Sodium Level 141 mmol/L (136-145) Potassium Level 5.1 mmol/L (3.5-5.1) Chloride Level 112 mmol/L (98-107) Carbon Dioxide Level 14 mmol/L (21-32) Anion Gap 15 (6-14) Blood Urea Nitrogen 57 mg/dL (7-20) Creatinine 4.5 mg/dL (0.6-1.0) Estimated GFR (Cockcroft-Gault) 12.1 Glucose Level 127 mg/dL (70-99) Calcium Level 8.4 mg/dL (8.5-10.1) Test 07/03/19 17:11 07/03/19 20:57 07/04/19 03:35 07/04/19 07:34 Glucose (Fingerstick) 140 mg/dL (70-99) 141 mg/dL (70-99) 157 mg/dL (70-99) Sodium Level 143 mmol/L (136-145) Potassium Level 4.2 mmol/L (3.5-5.1) Chloride Level 111 mmol/L (98-107) Carbon Dioxide Level 18 mmol/L (21-32) Anion Gap 14 (6-14) Blood Urea Nitrogen 52 mg/dL (7-20) Creatinine 4.6 mg/dL (0.6-1.0) Estimated GFR (Cockcroft-Gault) 11.8 BUN/Creatinine Ratio 11 (6-20) Glucose Level 113 mg/dL (70-99) Calcium Level 8.0 mg/dL (8.5-10.1) Total Bilirubin 0.4 mg/dL (0.2-1.0) Aspartate Amino Transf (AST/SGOT) 42 U/L (15-37) Alanine Aminotransferase (ALT/SGPT) 138 U/L (14-59) Alkaline Phosphatase 101 U/L (46-116) Total Protein 5.8 g/dL (6.4-8.2) Albumin 2.8 g/dL (3.4-5.0) Albumin/Globulin Ratio 0.9 (1.0-1.7) Test 07/04/19 11:12 07/04/19 11:13 D-Dimer (Cary) 1.05 ug/mlFEU (0.00-0.50) Glucose (Fingerstick) 139 mg/dL (70-99) Laboratory Tests Test 07/03/19 17:11 07/03/19 20:57 07/04/19 03:35 07/04/19 07:34 Glucose (Fingerstick) 140 mg/dL (70-99) 141 mg/dL (70-99) 157 mg/dL (70-99) Sodium Level 143 mmol/L (136-145) Potassium Level 4.2 mmol/L (3.5-5.1) Chloride Level 111 mmol/L (98-107) Carbon Dioxide Level 18 mmol/L (21-32) Anion Gap 14 (6-14) Blood Urea Nitrogen 52 mg/dL (7-20) Creatinine 4.6 mg/dL (0.6-1.0) Estimated GFR (Cockcroft-Gault) 11.8 BUN/Creatinine Ratio 11 (6-20) Glucose Level 113 mg/dL (70-99) Calcium Level 8.0 mg/dL (8.5-10.1) Total Bilirubin 0.4 mg/dL (0.2-1.0) Aspartate Amino Transf (AST/SGOT) 42 U/L (15-37) Alanine Aminotransferase (ALT/SGPT) 138 U/L (14-59) Alkaline Phosphatase 101 U/L (46-116) Total Protein 5.8 g/dL (6.4-8.2) Albumin 2.8 g/dL (3.4-5.0) Albumin/Globulin Ratio 0.9 (1.0-1.7) Test 07/04/19 11:12 07/04/19 11:13 D-Dimer (Cary) 1.05 ug/mlFEU (0.00-0.50) Glucose (Fingerstick) 139 mg/dL (70-99) Medications Current Medications Aspirin (Renetta Aspirin) 325 mg 1X ONCE PO Last administered on 07/02/19at 15:30; Start 07/02/19 at 15:15; Stop 07/02/19 at 15:20; Status DC Famotidine (Pepcid Vial) 20 mg 1X ONCE IVP Last administered on 07/02/19at 17:19; Start 07/02/19 at 17:15; Stop 07/02/19 at 17:16; Status DC Hydralazine HCl (Apresoline Inj) 10 mg PRN Q4HRS PRN IVP ELEVATED BP, SEE COMMENTS Last administered on 07/04/19at 03:37; Start 07/02/19 at 18:30 Labetalol HCl (Normodyne Iv Push) 20 mg PRN Q3HRS PRN IVP HYPERTENSION Last administered on 07/04/19at 05:31; Start 07/02/19 at 18:30 Sodium Chloride 1,000 ml @ 100 mls/hr Q10H IV Last administered on 07/03/19at 08:26; Start 07/02/19 at 18:30; Stop 07/03/19 at 15:10; Status DC Clonidine HCl (Catapres) 0.2 mg TID PO Last administered on 07/04/19at 14:46; Start 07/02/19 at 21:00 Carvedilol (Coreg) 25 mg BIDWMEALS PO Last administered on 07/04/19at 09:14; Start 07/02/19 at 19:00; Stop 07/04/19 at 10:09; Status DC Hydralazine HCl (Apresoline) 50 mg TID PO Last administered on 07/04/19at 09:15; Start 07/03/19 at 09:45; Stop 07/04/19 at 10:09; Status DC Acetaminophen (Tylenol) 500 mg PRN Q6HRS PRN PO MILD PAIN / TEMP Last administered on 07/04/19 05:31; Start 07/03/19 at 10:15 Temazepam (Restoril) 15 mg PRN QHS PRN PO INSOMNIA Last administered on 07/03/19 22:11; Start 07/03/19 at 14:15 Sodium Chloride 38.5 meq/Sodium Bicarbonate 100 meq/Sterile Water 1,109.625 ml @ 100 mls/hr Q11H6M IV Last administered on 07/04/19 03:32; Start 07/03/19 at 15:00 Pantoprazole Sodium (Protonix) 40 mg DAILYAC PO Last administered on 07/04/19 11:11; Start 07/04/19 at 10:00 Hydralazine HCl (Apresoline) 100 mg TID PO Last administered on 07/04/19 14:46; Start 07/04/19 at 14:00 Pantoprazole Sodium (Protonix) 40 mg DAILYAC PO ; Start 07/05/19 at 07:30; Status UNV Labetalol HCl (Trandate) 100 mg BID PO Last administered on 07/04/19 11:10; Start 07/04/19 at 10:30 Amlodipine Besylate (Norvasc) 5 mg DAILY PO Last administered on 07/04/19 11:11; Start 07/04/19 at 10:30 Active Scripts Active Reported Clonidine Hcl 0.2 Mg Tablet 1 Tab PO TID Atorvastatin Calcium 20 Mg Tablet 20 Mg PO HS Metformin Hcl 500 Mg Tablet 500 Mg PO BIDWMEALS Losartan Potassium 100 Mg Tablet 100 Mg PO DAILY Coreg (Carvedilol) 25 Mg Tablet 25 Mg PO BIDWMEALS Vitals/I & O Vital Sign - Last 24 Hours 07/03/19 07/03/19 07/03/19 07/03/19 15:00 17:25 19:00 19:45 Temp 97.5 98.7 97.5 98.7 Pulse 85 85 83 Resp 18 18 B/P (MAP) 167/90 (115) 167/90 182/92 (122) Pulse Ox 99 95 O2 Delivery Room Air Room Air Room Air 07/03/19 07/03/19 07/03/19 07/04/19 20:58 20:58 22:12 03:01 Temp 98.7 98.5 98.7 98.5 Pulse 83 83 80 82 Resp 16 18 B/P (MAP) 182/92 182/92 167/83 (111) 201/99 (133) Pulse Ox 98 96 O2 Delivery Room Air Room Air 07/04/19 07/04/19 07/04/19 07/04/19 03:34 03:37 05:24 05:31 Pulse 81 81 83 85 B/P (MAP) 192/97 (128) 192/97 195/100 (131) 195/100 07/04/19 07/04/19 07/04/19 07/04/19 07:00 08:00 09:14 09:15 Temp 98.1 98.1 Pulse 88 80 86 Resp 22 B/P (MAP) 217/113 (147) 217/113 Pulse Ox 94 O2 Delivery Nasal Cannula Room Air O2 Flow Rate 1.0 07/04/19 07/04/19 07/04/19 07/04/19 09:15 10:43 11:10 11:11 Temp 97.8 97.8 Pulse 82 79 Resp 20 B/P (MAP) 229/118 216/112 (146) 216/112 216/112 Pulse Ox 96 O2 Delivery Nasal Cannula O2 Flow Rate 2.0 07/04/19 07/04/19 14:46 14:46 B/P (MAP) 200/109 200/109 Intake and Output 07/03/19 07/03/19 07/04/19 15:00 23:00 07:00 Intake Total 1005 ml 600 ml Output Total 100 ml 200 ml Balance 905 ml 400 ml THIERNO BELTRE MD Jul 04, 2019 14:57
[2019-07-04] MEDS: TEMAZEPAM 15 MG CAPSULE PO PRN (23:08)
[2019-07-05 02:43] VITALS: BP 188/85
[2019-07-05 07:00] VITALS: BP 205/95
[2019-07-05] MEDS ORDERED: PANTOPRAZOLE 40 MG TABLET.DR. PO SCH (07:30)
[2019-07-05] MEDS: LABETALOL 20 MG/4 ML DISP.SYRIN. IVP PRN (08:54)
[2019-07-05] MEDS ORDERED: LIDOCAINE 1%/EPI 1:100,000 20 ML VIAL. ONE (09:34)
[2019-07-05] MEDS ORDERED: MIDAZOLAM HCL/PF 2 MG/2 ML VIAL. ONE (09:40)
[2019-07-05] MEDS ORDERED: fentaNYL PF VIAL 100 MCG/2 ML VIAL ONE (09:40)
[2019-07-05] MEDS ORDERED: fentaNYL PF VIAL 100 MCG/2 ML VIAL IV ONE (09:45)
[2019-07-05] MEDS ORDERED: MIDAZOLAM HCL/PF 2 MG/2 ML VIAL. IV ONE (09:45)
[2019-07-05] MEDS ORDERED: LIDOCAINE 1%/EPI 1:100,000 20 ML VIAL. SQ ONE (09:45)
--- NOTE | 2019-07-05 10:22 | PDOC ---
MODERATE SEDATION ASSESSMENT RISKS/ALTERNATIVES Risks/Alternatives Risks and alternatives of this type of sedation and procedure discussed with: RISK/ALTERNATIVES: Patient H & P ON CHART H & P H & P on chart and reviewed for co-morbid conditions and appropriate labs. H&P ON CHART: Yes STATUS PREG STATUS ASSESSED: Yes MEDS/ALLERGIES REVIEWED Meds/Allergies Reviewed Medications and Allergies including time and route of recently administered narcotics and sedatives. MEDS/ALLERGIES REVIEWED: Yes ASA RATING ASA RATING: II AIRWAY ASSESSMENT Airway Assessment Airway patency, oral function limitations, presence of caps, crowns, dentures, partials, and ability to extend neck assessed. AIRWAY ASSESSMENT: Yes MALLAMPATI SCORE MALLAMPATI SCORE: II PRE-SEDATION ASSESSMENT PRE-SEDATION ASSESSMENT: Yes HARJEET MOORE MD Jul 05, 2019 10:22
--- NOTE | 2019-07-05 10:23 | PDOC ---
BRIEF OPERATIVE NOTE Pre-Op Diagnosis ARF Post-Op Diagnosis same Procedure Performed Tunnelled HD catheter Surgeon Ce Anesthesia Type: Conscious Sedation Findings 23cm palindrome with excellent manual flows, suitable for use Complications No immediate HARJEET MOORE MD Jul 05, 2019 10:23
--- NOTE | 2019-07-05 10:28 | RAD ---
Procedure: Tunneled hemodialysis catheter placement Clinical Indication: Adult female with acute renal failure Sedation: Conscious sedation was administered for 12 minutes. The patient was monitored by a qualified independent observer throughout the time of sedation. Please refer to the medical record for exact doses of medications utilized to achieve moderate sedation. Antibiotics: Antibiotic was administered intravenously within 1 hour of the procedure start time. Fluoro Time: Less than 1 minute, images: 1 Contrast: None Sterility: All elements of maximal sterile barrier technique including the use of a cap, mask, sterile gown, sterile gloves, large sterile sheet, appropriate hand hygiene, and 2% chlorhexidine for cutaneous antisepsis (or acceptable alternative antiseptic per current guidelines) were followed for this procedure. Consent: The procedure was explained in its entirety to the patient or the patients designated installation service representative by a member of the treatment team, including a discussion of the risks, benefits and commonly accepted alternatives to the procedure, as well as the expected consequences of no therapy whatsoever. Discussion of the risks included, but was not limited to, those that are most frequent and those that are rare but possibly severe or life-threatening, as well as the possibility of unforeseen complications. Technique and Findings: Following informed consent, the patient was prepped and draped in the usual sterile fashion. Ultrasound interrogation of the right neck revealed patency and compressibility of the right internal jugular vein. A 21-gauge micropuncture was then used to gain access to this vein under ultrasound guidance. A hard copy ultrasound image was recorded. The needle was exchanged over a wire for a 4 Icelandic sheath which was used to guide an Amplatz wire into the IVC. The skin over the right anterior chest wall was copiously anesthetized with 1% Lidocaine plus Epinephrine and a small dermatotomy was made. A 23 cm palindrome tunneled hemodialysis catheter was then tunneled subcutaneously towards the neck dermatotomy and deployed through a large caliber peel-away sheath under fluoroscopic guidance such that the distal tip resided in the mid right atrium. Manual flow rates were assessed and found to be excellent. The catheter was then flushed, packed with Heparin, capped, and sutured to the skin. The neck dermatotomy was closed with Dermabond. Complications: No immediate Impression: 1. Tunneled hemodialysis catheter placement as described. This catheter demonstrates excellent manual flow rates and is suitable for use immediately.
[2019-07-05 10:44] VITALS: BP 221/124
[2019-07-05] MEDS: cloNIDine HCL 0.2 MG TABLET PO SCH ×3 (11:00→20:58)
[2019-07-05] MEDS: amLODIPine BESYLATE 5 MG TABLET PO SCH (11:00)
[2019-07-05] MEDS: PANTOPRAZOLE 40 MG TABLET.DR. PO SCH (11:00)
[2019-07-05] MEDS: LABETALOL HCL 100 MG TABLET. PO SCH ×2 (11:01→20:59)
--- NOTE | 2019-07-05 11:40 | PDOC ---
[facility] PROGRESS NOTE Chief Complaint Chief Complaint Acute renal failure on chronic renal failure Dehydration Probable noncompliance with antihypertensives? Hypertensive emergency, elevated troponin and electrolyte disturbance with azotemia, anemia. History of Present Illness History of Present Illness July 03, 2019 Patient seen and examined Her creatinine is down to 4.5 from 5.1 She is still on IV fluids Chart reviewed Discussed with RN 07/04/19 Patient seen and examined Her creatinine actually went up to 4.6 24-hour urine in progress Chart reviewed Discussed with RN She is going need dialysis either this admit or soon 07/05/19 Patient seen and examined Her creatinine clearance is now 11 We are placing a dialysis catheter today to begin dialysis She's a little depressed about this Reviewed chart Discussed with RN Vitals/I&O Vitals/I&O: Vital Signs Date Time Temp Pulse Resp B/P (MAP) Pulse Ox O2 Delivery O2 Flow Rate FiO2 07/05/19 11:01 94 221/124 07/05/19 10:44 97.8 18 96 Room Air 97.8 07/05/19 02:43 2.0 I & O 07/04/19 07/04/19 07/05/19 15:00 23:00 07:00 Intake Total 480 ml 240 ml 120 ml Output Total 400 ml 300 ml Balance 80 ml -60 ml 120 ml Physical Exam General: Alert, Oriented X3, Cooperative, No acute distress Heart: Regular rate, Normal S1, Normal S2, No murmurs, Gallops Lungs: Clear Abdomen: Normal bowel sounds, Soft, No tenderness, No hepatosplenomegaly, No masses Extremities: No clubbing, No cyanosis, No edema, Normal pulses, No tenderness/swelling Skin: No rashes, No breakdown Labs Labs: Laboratory Tests Test 07/04/19 16:50 07/04/19 20:22 07/05/19 07:48 07/05/19 09:03 Glucose (Fingerstick) 114 mg/dL (70-99) 137 mg/dL (70-99) 138 mg/dL (70-99) Hepatitis B Surface Antigen Nonreactive (Nonreactive) Assessment and Plan Assessmemt and Plan Problems Medical Problems: (1) Acute renal failure Status: Acute (2) Elevated troponin Status: Acute Acute renal failure on chronic renal failure Dehydration Probable noncompliance with antihypertensives? Hypertensive emergency, elevated troponin and electrolyte disturbance with azotemia, anemia. Plan Start dialysis Nephrology is following Home meds PT OT DVT prophylaxis Full code Appreciate subspecialist input Long-term prognosis guarded Comment Review of Relevant I have reviewed the following items roque (where applicable) has been applied. Medications: Current Medications Medications (Trade) Dose Ordered Sig/Nik Route PRN Reason Start Time Stop Time Status Last Admin Dose Admin Hydralazine HCl (Apresoline) 100 mg TID PO 07/04/19 14:00 07/05/19 11:01 Labetalol HCl (Trandate) 200 mg BID PO 07/05/19 09:00 07/05/19 11:01 Midazolam HCl (Versed) 2 mg 1X ONCE IV 07/05/19 09:45 07/05/19 09:53 DC 07/05/19 09:45 Fentanyl Citrate (Fentanyl 2ml Vial) 100 mcg 1X ONCE IV 07/05/19 09:45 07/05/19 09:53 DC 07/05/19 09:45 Lidocaine/ Epinephrine (LIDOCAINE 1%-EPI 1:100,000 Multi-Dose) 20 ml 1X ONCE SQ 07/05/19 09:45 07/05/19 09:53 DC 07/05/19 09:45 Cefazolin Sodium 50 ml @ 100 mls/hr 1X ONCE IV 07/05/19 09:45 07/05/19 10:14 DC 07/05/19 09:55 SUSAN SOLIS III DO Jul 05, 2019 11:39
--- NOTE | 2019-07-05 11:41 | PDOC ---
PROGRESS NOTES Subjective Subjective SEEN IN FOLLOW UP OF NEW ESRD Objective Objective Vital Signs Date Time Temp Pulse Resp B/P (MAP) Pulse Ox O2 Delivery O2 Flow Rate FiO2 07/05/19 11:01 94 221/124 07/05/19 10:44 97.8 18 96 Room Air 97.8 07/05/19 02:43 2.0 Intake and Output 07/05/19 07:00 Intake Total 840 ml Output Total 700 ml Balance 140 ml Intake Oral 840 ml Output Urine Total 700 ml # Voids 3 Physical Exam Abdomen: Normal bowel sounds, Soft, No tenderness, No hepatosplenomegaly, No masses Heart: Regular rate, Normal S1, Normal S2, No murmurs, Gallops Extremities: No clubbing, No cyanosis, No edema, Normal pulses, No tenderness/swelling General: Alert, Oriented X3, Cooperative, No acute distress Lungs: Clear to auscultation, Normal air movement Neuro: Normal gait, Normal speech, Normal tone, Sensation intact, Reflexes 2+ Psych/Mental Status: Mental status NL, Mood NL Diagnosis HYPERTENSION: Accelerated hypertension RENAL FAILURE: ESRD Assessment Assessment Problems Medical Problems: (1) Acute renal failure Status: Acute (2) Elevated troponin Status: Acute Plan Plan of Care HAS PERMCATH. FOR DIALYSIS #1 TODAY. NEST DIALYSIS THURSDAY AND THURSDAY. CONT BP MANAGEMENT PER CARDIOLOGY Comment Review of Relevant I have reviewed the following items roque (where applicable) has been applied. Labs Laboratory Tests Test 07/03/19 11:47 07/03/19 17:11 07/03/19 20:57 07/04/19 03:35 Glucose (Fingerstick) 111 mg/dL (70-99) 140 mg/dL (70-99) 141 mg/dL (70-99) Sodium Level 143 mmol/L (136-145) Potassium Level 4.2 mmol/L (3.5-5.1) Chloride Level 111 mmol/L (98-107) Carbon Dioxide Level 18 mmol/L (21-32) Anion Gap 14 (6-14) Blood Urea Nitrogen 52 mg/dL (7-20) Creatinine 4.6 mg/dL (0.6-1.0) Estimated GFR (Cockcroft-Gault) 11.8 BUN/Creatinine Ratio 11 (6-20) Glucose Level 113 mg/dL (70-99) Calcium Level 8.0 mg/dL (8.5-10.1) Total Bilirubin 0.4 mg/dL (0.2-1.0) Aspartate Amino Transf (AST/SGOT) 42 U/L (15-37) Alanine Aminotransferase (ALT/SGPT) 138 U/L (14-59) Alkaline Phosphatase 101 U/L (46-116) Total Protein 5.8 g/dL (6.4-8.2) Albumin 2.8 g/dL (3.4-5.0) Albumin/Globulin Ratio 0.9 (1.0-1.7) Test 07/04/19 07:34 07/04/19 11:12 07/04/19 11:13 07/04/19 16:50 Glucose (Fingerstick) 157 mg/dL (70-99) 139 mg/dL (70-99) 114 mg/dL (70-99) D-Dimer (Cary) 1.05 ug/mlFEU (0.00-0.50) Test 07/04/19 20:22 07/05/19 07:48 07/05/19 09:03 Glucose (Fingerstick) 137 mg/dL (70-99) 138 mg/dL (70-99) Hepatitis B Surface Antigen Nonreactive (Nonreactive) Laboratory Tests Test 07/04/19 16:50 07/04/19 20:22 07/05/19 07:48 07/05/19 09:03 Glucose (Fingerstick) 114 mg/dL (70-99) 137 mg/dL (70-99) 138 mg/dL (70-99) Hepatitis B Surface Antigen Nonreactive (Nonreactive) Medications Current Medications Aspirin (Renetta Aspirin) 325 mg 1X ONCE PO Last administered on 07/02/19at 15:30; Start 07/02/19 at 15:15; Stop 07/02/19 at 15:20; Status DC Famotidine (Pepcid Vial) 20 mg 1X ONCE IVP Last administered on 07/02/19at 17:19; Start 07/02/19 at 17:15; Stop 07/02/19 at 17:16; Status DC Hydralazine HCl (Apresoline Inj) 10 mg PRN Q4HRS PRN IVP ELEVATED BP, 1ST CHOICE Last administered on 07/04/19at 03:37; Start 07/02/19 at 18:30 Labetalol HCl (Normodyne Iv Push) 20 mg PRN Q3HRS PRN IVP HYPERTENSION, 2ND CHOICE Last administered on 07/05/19 08:54; Start 07/02/19 at 18:30 Sodium Chloride 1,000 ml @ 100 mls/hr Q10H IV Last administered on 07/03/19 08:26; Start 07/02/19 at 18:30; Stop 07/03/19 at 15:10; Status DC Clonidine HCl (Catapres) 0.2 mg TID PO Last administered on 07/05/19 11:00; Start 07/02/19 at 21:00 Carvedilol (Coreg) 25 mg BIDWMEALS PO Last administered on 07/04/19 09:14; Start 07/02/19 at 19:00; Stop 07/04/19 at 10:09; Status DC Hydralazine HCl (Apresoline) 50 mg TID PO Last administered on 07/04/19 09:15; Start 07/03/19 at 09:45; Stop 07/04/19 at 10:09; Status DC Acetaminophen (Tylenol) 500 mg PRN Q6HRS PRN PO MILD PAIN / TEMP Last administered on 07/04/19 23:08; Start 07/03/19 at 10:15 Temazepam (Restoril) 15 mg PRN QHS PRN PO INSOMNIA Last administered on 07/04/19 23:08; Start 07/03/19 at 14:15 Sodium Chloride 38.5 meq/Sodium Bicarbonate 100 meq/Sterile Water 1,109.625 ml @ 100 mls/hr Q11H6M IV Last administered on 07/04/19 03:32; Start 07/03/19 at 15:00; Stop 07/04/19 at 15:53; Status DC Pantoprazole Sodium (Protonix) 40 mg DAILYAC PO Last administered on 07/05/19 11:00; Start 07/04/19 at 10:00 Hydralazine HCl (Apresoline) 100 mg TID PO Last administered on 07/05/19 11:01; Start 07/04/19 at 14:00 Pantoprazole Sodium (Protonix) 40 mg DAILYAC PO ; Start 07/05/19 at 07:30; Status UNV Labetalol HCl (Trandate) 100 mg BID PO Last administered on 07/04/19at 20:24; Start 07/04/19 at 10:30; Stop 07/05/19 at 08:12; Status DC Amlodipine Besylate (Norvasc) 5 mg DAILY PO Last administered on 07/05/19 11:00; Start 07/04/19 at 10:30 Labetalol HCl (Trandate) 200 mg BID PO Last administered on 07/05/19at 11:01; Start 07/05/19 at 09:00 Lidocaine/ Epinephrine (LIDOCAINE 1%-EPI 1:100,000 Multi-Dose) 20 ml STK-MED ONCE .ROUTE ; Start 07/05/19 at 09:34; Stop 07/05/19 at 09:34; Status DC Cefazolin Sodium 50 ml @ As Directed STK-MED ONCE IV ; Start 07/05/19 at 09:39; Stop 07/05/19 at 09:39; Status DC Midazolam HCl (Versed) 2 mg STK-MED ONCE .ROUTE ; Start 07/05/19 at 09:40; Stop 07/05/19 at 09:40; Status DC Fentanyl Citrate (Fentanyl 2ml Vial) 100 mcg STK-MED ONCE .ROUTE ; Start 07/05/19 at 09:40; Stop 07/05/19 at 09:40; Status DC Midazolam HCl (Versed) 2 mg 1X ONCE IV Last administered on 07/05/19at 09:45; Start 07/05/19 at 09:45; Stop 07/05/19 at 09:53; Status DC Fentanyl Citrate (Fentanyl 2ml Vial) 100 mcg 1X ONCE IV Last administered on 07/05/19at 09:45; Start 07/05/19 at 09:45; Stop 07/05/19 at 09:53; Status DC Lidocaine/ Epinephrine (LIDOCAINE 1%-EPI 1:100,000 Multi-Dose) 20 ml 1X ONCE SQ Last administered on 07/05/19at 09:45; Start 07/05/19 at 09:45; Stop 07/05/19 at 09:53; Status DC Cefazolin Sodium 50 ml @ 100 mls/hr 1X ONCE IV Last administered on 06/13 09:55; Start 07/05/19 at 09:45; Stop 07/05/19 at 10:14; Status DC Active Scripts Active Reported Clonidine Hcl 0.2 Mg Tablet 1 Tab PO TID Atorvastatin Calcium 20 Mg Tablet 20 Mg PO HS Metformin Hcl 500 Mg Tablet 500 Mg PO BIDWMEALS Losartan Potassium 100 Mg Tablet 100 Mg PO DAILY Coreg (Carvedilol) 25 Mg Tablet 25 Mg PO BIDWMEALS Vitals/I & O Vital Sign - Last 24 Hours 07/04/19 07/04/19 07/04/19 07/04/19 14:46 14:46 14:54 16:56 Temp 98.7 98.7 Pulse 82 Resp 18 B/P (MAP) 200/109 200/109 200/104 (136) 182/97 (125) Pulse Ox 96 O2 Delivery Room Air 07/04/19 07/04/19 07/04/19 07/04/19 19:20 19:55 20:24 20:24 Temp 98.1 98.1 Pulse 83 83 83 Resp 20 B/P (MAP) 196/89 (124) 196/89 196/89 Pulse Ox 98 O2 Delivery Nasal Cannula Room Air O2 Flow Rate 2.0 07/04/19 07/04/19 07/05/19 07/05/19 20:24 23:10 02:43 07:00 Temp 98.5 98.7 97.6 98.5 98.7 97.6 Pulse 83 83 84 78 Resp 18 18 18 B/P (MAP) 196/89 190/88 (122) 188/85 (119) 205/95 (131) Pulse Ox 97 94 95 O2 Delivery Nasal Cannula Nasal Cannula Room Air O2 Flow Rate 1.0 2.0 07/05/19 07/05/19 07/05/19 07/05/19 08:54 09:45 10:44 11:00 Temp 97.8 97.8 Pulse 78 94 94 Resp 20 18 B/P (MAP) 205/95 221/124 (156) 221/124 Pulse Ox 96 O2 Delivery Room Air 07/05/19 07/05/19 07/05/19 11:00 11:01 11:01 Pulse 94 94 94 B/P (MAP) 221/124 221/124 221/124 Intake and Output 07/04/19 07/04/19 07/05/19 15:00 23:00 07:00 Intake Total 480 ml 240 ml 120 ml Output Total 400 ml 300 ml Balance 80 ml -60 ml 120 ml THIERNO BELTRE MD Jul 05, 2019 11:41
--- NOTE | 2019-07-05 12:11 | PDOC ---
MELINA ANGEL SUPERVISOR SALVAGE 07/05/19 1211: CARDIO Progress Notes Date and Time Date of Service 07/05/19 Time of Evaluation 1040 Subjective Subjective: No Chest Pain, No shortness of breath, No Palpitations, No Dizziness Vitals Vitals Vital Signs Date Time Temp Pulse Resp B/P (MAP) Pulse Ox O2 Delivery O2 Flow Rate FiO2 07/05/19 11:01 94 221/124 07/05/19 10:44 97.8 18 96 Room Air 97.8 07/05/19 02:43 2.0 Weight Weight [ ] Input and Output Intake and Output Intake and Output 07/05/19 07:00 Intake Total 840 ml Output Total 700 ml Balance 140 ml Intake Oral 840 ml Output Urine Total 700 ml # Voids 3 Laboratory Labs Laboratory Tests Test 07/04/19 16:50 07/04/19 20:22 07/05/19 07:48 07/05/19 09:03 Glucose (Fingerstick) 114 mg/dL (70-99) 137 mg/dL (70-99) 138 mg/dL (70-99) Hepatitis B Surface Antigen Nonreactive (Nonreactive) Test 07/05/19 11:35 Glucose (Fingerstick) 152 mg/dL (70-99) Physical Exam HEENT: Neck Supple W Full Motion Chest: Symmetric LUNGS: Clear to Auscultation Heart: S1S2, RRR, murmurs (2/6 systolic murmur ) Abdomen: Soft N/T Extremities: No Edema Neurology: alert, oriented, follow commands Assessment Assessment 1. THEA/CKD. Now ESRD. HD to be initiated 2. Hypertensive urgency; blood pressure remains elevated. Renal duplex without evidence of stenosis 3. NSTEMI; peak 0.8. Most probably type II, demand ischemia in the setting of THEA. 4. Chronic systolic HF with CMP. LVEF 40%. Suspect NICM, but will need to r/o ischemic etiology. Clinically compensated 4. Hyperlipidemia 5.. Diabetes, II 6. Elevated LFTs 7. GERD; PPI Recommendations Increase labetalol, norvasc Add imdur. If BP remains elevated, add lisinoprol Will need further ischemic workup, possible as an outpatient Will follow. DONITA RESTREPO MD 07/05/19 7791: CARDIO Progress Notes Plan Plan Patient seen and examined. Agree with above nurse practitioner note. No acute cardiac events overnight The patient is currently starting hemodialysis. I again approached the patient regarding her cardiomyopathy and symptoms of chest discomfort. At this present time she does not wish to pursue further discussions and she wants us to readdress this on morning. We will plan for discussion again on regarding inpatient versus outpatient coronary angiography/stress testing. MELINA ANGEL APRN Jul 05, 2019 12:11 DONITA RESTREPO MD Jul 05, 2019 15:39
[2019-07-05] MEDS ORDERED: amLODIPine BESYLATE 5 MG TABLET PO ONE (12:15)
[2019-07-05] MEDS: ISOSORBIDE MONONITRATE ER 30 MG TAB.ER.24H PO SCH (12:31)
--- NOTE | 2019-07-05 12:45 | NUR ---
SS following up with discharge planning. Pt now new ESRD and will need OPHD setup. Pt to get first dialysis 07/06/2019 or 07/07/2019. SS currently awaiting serology lab results and flow sheets from first dialysis and will proceed accordingly with referral.
[2019-07-05] MEDS ORDERED: IV NORMAL SALINE 1000ML BAG 1,000 ML IV PRN ×2 (13:04)
[2019-07-05] MEDS ORDERED: ALBUMIN HUMAN 25% 200 ML IV PRN (13:15)
[2019-07-05] MEDS ORDERED: 0.9 % SODIUM CHLORIDE 10 ML DISP.SYRIN. IV PRN ×2 (13:15)
[2019-07-05] MEDS ORDERED: DIALYSIS PATIENT. MC PRN ×2 (13:15)
[2019-07-05 14:46] VITALS: BP 151/78
[2019-07-05 19:00] VITALS: BP 145/69
[2019-07-05] MEDS: ACETAMINOPHEN 500 MG TABLET PO PRN (19:35)
[2019-07-05] MEDS: TEMAZEPAM 15 MG CAPSULE PO PRN (23:16)
[2019-07-05 23:18] VITALS: BP 137/66
[2019-07-06 03:35] VITALS: BP 140/66
[2019-07-06] MEDS: PANTOPRAZOLE 40 MG TABLET.DR. PO SCH (06:38)
[2019-07-06 07:16] VITALS: BP 147/71
[2019-07-06] MEDS: amLODIPine BESYLATE 10 MG TABLET PO SCH (08:54)
[2019-07-06] MEDS: ISOSORBIDE MONONITRATE ER 30 MG TAB.ER.24H PO SCH (08:54)
[2019-07-06] MEDS: cloNIDine HCL 0.2 MG TABLET PO SCH ×3 (08:54→20:43)
[2019-07-06] MEDS: LABETALOL HCL 100 MG TABLET. PO SCH ×2 (08:55→20:43)
[2019-07-06] MEDS: ACETAMINOPHEN 500 MG TABLET PO PRN (08:56)
[2019-07-06 10:33] VITALS: BP 111/55
--- NOTE | 2019-07-06 12:08 | PDOC ---
[facility] PROGRESS NOTE Chief Complaint Chief Complaint Acute renal failure on chronic renal failure Dehydration Probable noncompliance with antihypertensives? Hypertensive emergency, elevated troponin and electrolyte disturbance with azotemia, anemia. History of Present Illness History of Present Illness July 03, 2019 Patient seen and examined Her creatinine is down to 4.5 from 5.1 She is still on IV fluids Chart reviewed Discussed with RN 07/04/19 Patient seen and examined Her creatinine actually went up to 4.6 24-hour urine in progress Chart reviewed Discussed with RN She is going need dialysis either this admit or soon 07/05/19 Patient seen and examined Her creatinine clearance is now 11 We are placing a dialysis catheter today to begin dialysis She's a little depressed about this Reviewed chart Discussed with RN 07/06/19 Patient seen and examined She got her first dialysis yesterday after her tunneled catheter was placed Chart reviewed Discussed with RN Vitals/I&O Vitals/I&O: Vital Signs Date Time Temp Pulse Resp B/P (MAP) Pulse Ox O2 Delivery O2 Flow Rate FiO2 07/06/19 10:33 98.0 86 18 111/55 (73) 93 Room Air 98.0 07/05/19 08:00 2.0 I & O 07/05/19 07/05/19 07/06/19 15:00 23:00 07:00 Intake Total 240 ml 580 ml 100 ml Balance 240 ml 580 ml 100 ml Physical Exam General: Alert, Oriented X3, Cooperative, No acute distress Heart: Regular rate, Normal S1, Normal S2, No murmurs, Gallops Lungs: Clear Abdomen: Normal bowel sounds, Soft, No tenderness, No hepatosplenomegaly, No masses Extremities: No clubbing, No cyanosis, No edema, Normal pulses, No tenderness/swelling Skin: No rashes, No breakdown Labs Labs: Laboratory Tests Test 07/05/19 13:35 07/05/19 17:55 07/05/19 20:55 07/06/19 07:20 Hepatitis B Surface Antibody Nonreactive Hepatitis B Core Total Antibody Nonreactive (Nonreactive) Glucose (Fingerstick) 90 mg/dL (70-99) 145 mg/dL (70-99) 124 mg/dL (70-99) Test 07/06/19 11:20 Glucose (Fingerstick) 177 mg/dL (70-99) Assessment and Plan Assessmemt and Plan Problems Medical Problems: (1) Acute renal failure Status: Acute (2) Elevated troponin Status: Acute Acute renal failure on chronic renal failure Dehydration Probable noncompliance with antihypertensives? Hypertensive emergency, elevated troponin and electrolyte disturbance with azotemia, anemia. Plan Started dialysis Nephrology is following Home meds PT OT DVT prophylaxis Full code Appreciate subspecialist input Hopefully she could get a transplant some day Comment Review of Relevant I have reviewed the following items roque (where applicable) has been applied. Medications: Current Medications Medications (Trade) Dose Ordered Sig/Nik Route PRN Reason Start Time Stop Time Status Last Admin Dose Admin Amlodipine Besylate (Norvasc) 10 mg DAILY PO 07/06/19 09:00 07/06/19 08:54 Amlodipine Besylate (Norvasc) 5 mg 1X ONCE PO 07/05/19 12:15 07/05/19 12:16 DC 07/05/19 12:32 Isosorbide Mononitrate (Imdur) 30 mg DAILY PO 07/05/19 12:15 07/06/19 08:54 SUSAN SOLIS III DO Jul 06, 2019 12:08
--- NOTE | 2019-07-06 14:19 | PDOC ---
SUBJECTIVE ROS No complaints/concerns today OBJECTIVE Vital Signs Vital Signs Date Time Temp Pulse Resp B/P (MAP) Pulse Ox O2 Delivery O2 Flow Rate FiO2 07/06/19 14:09 84 135/69 07/06/19 10:33 98.0 18 93 Room Air 98.0 07/05/19 08:00 2.0 I & 0 Intake and Output 07/06/19 07:00 Intake Total 920 ml Balance 920 ml Intake Oral 920 ml # Voids 5 PHYSICAL EXAM Physical Exam Abdomen: Normal bowel sounds, Soft, No tenderness, No hepatosplenomegaly, No masses Heart: Regular rate, Normal S1, Normal S2, No murmurs, Gallops Extremities: No clubbing, No cyanosis, No edema, Normal pulses, No tenderness/swelling General: Alert, Oriented X3, Cooperative, No acute distress Lungs: Clear to auscultation, Normal air movement Neuro: Normal gait, Normal speech, Normal tone, Sensation intact, Reflexes 2+ Psych/Mental Status: Mental status NL, Mood NL DIAGNOSIS/ASSESSMENT Assessment & Plan New Onset ESRD - inirtiated on HD on 07/05 Scheduled for 2 nfd treatment on 07/07 Currently clinically No indication today OP chair time per SW Access- Tinneled HDc placed on 07/05 HTN- No GRACY on Renal doppler 07/04/19 Chronic systolic HF with CMP. LVEF 40%. Suspect NICM, Diabetes, II COMMENT/RELEVANT DATA Meds Current Medications Medications (Trade) Dose Ordered Sig/Nik Start Time Stop Time Status Last Admin Dose Admin Acetaminophen (Tylenol) 500 mg PRN Q6HRS PRN 07/03/19 10:15 07/06/19 08:56 500 MG Albumin Human 200 ml @ 200 mls/hr 1X PRN PRN 07/05/19 13:15 07/05/19 19:14 DC Amlodipine Besylate (Norvasc) 5 mg 1X ONCE 07/05/19 12:15 07/05/19 12:16 DC 07/05/19 12:32 5 MG Aspirin (Renetta Aspirin) 325 mg 1X ONCE 07/02/19 15:15 07/02/19 15:20 DC 07/02/19 15:30 325 MG Carvedilol (Coreg) 25 mg BIDWMEALS 07/02/19 19:00 07/04/19 10:09 DC 12/23/19 09:14 25 MG Cefazolin Sodium 50 ml @ 100 mls/hr 1X ONCE 07/05/19 09:45 07/05/19 10:14 DC 07/05/19 09:55 100 MLS/HR Clonidine HCl (Catapres) 0.2 mg TID 07/02/19 21:00 07/06/19 14:08 0.2 MG Famotidine (Pepcid Vial) 20 mg 1X ONCE 07/02/19 17:15 07/02/19 17:16 DC 07/02/19 17:19 20 MG Fentanyl Citrate (Fentanyl 2ml Vial) 100 mcg 1X ONCE 07/05/19 09:45 07/05/19 09:53 DC 07/05/19 09:45 100 MCG Hydralazine HCl (Apresoline Inj) 10 mg PRN Q4HRS PRN 07/02/19 18:30 07/04/19 03:37 10 MG Hydralazine HCl (Apresoline) 100 mg TID 07/04/19 14:00 07/06/19 14:09 100 MG Info (PHARMACY MONITORING -- do not chart) 1 each PRN DAILY PRN 07/05/19 13:15 Isosorbide Mononitrate (Imdur) 30 mg DAILY 07/05/19 12:15 07/06/19 08:54 30 MG Labetalol HCl (Normodyne Iv Push) 20 mg PRN Q3HRS PRN 07/02/19 18:30 07/05/19 08:54 20 MG Labetalol HCl (Trandate) 200 mg BID 07/05/19 09:00 07/06/19 08:55 200 MG Lidocaine/ Epinephrine (LIDOCAINE 1%-EPI 1:100,000 Multi-Dose) 20 ml 1X ONCE 07/05/19 09:45 07/05/19 09:53 DC 07/05/19 09:45 10 ML Midazolam HCl (Versed) 2 mg 1X ONCE 07/05/19 09:45 07/05/19 09:53 DC 07/05/19 09:45 2 MG Pantoprazole Sodium (Protonix) 40 mg DAILYAC 07/05/19 07:30 UNV Sodium Chloride 1,000 ml @ 400 mls/hr Q2H30M PRN 07/05/19 13:04 07/06/19 01:03 DC Sodium Chloride (Normal Saline Flush) 10 ml 1X PRN PRN 07/05/19 13:15 07/06/19 13:14 DC Sodium Chloride 38.5 meq/Sodium Bicarbonate 100 meq/Sterile Water 1,109.625 ml @ 100 mls/hr Q11H6M 07/03/19 15:00 07/04/19 15:53 DC 07/04/19 03:32 100 MLS/HR Temazepam (Restoril) 15 mg PRN QHS PRN 07/03/19 14:15 07/05/19 23:16 15 MG Lab Laboratory Tests Test 07/05/19 17:55 07/05/19 20:55 07/06/19 07:20 07/06/19 11:20 Glucose (Fingerstick) 90 mg/dL (70-99) 145 mg/dL (70-99) 124 mg/dL (70-99) 177 mg/dL (70-99) Results All relevant outside records, renal labs, imaging studies, telemetry/EKG's were reviewed. JAMES MATA MD Jul 06, 2019 14:19
[2019-07-06 14:20] VITALS: BP 135/69
[2019-07-06] MEDS: HYDROcodone/APAP 5/325MG 1 TAB TABLET PO PRN (14:54)
[2019-07-06 19:00] VITALS: BP 153/72
[2019-07-07 03:30] VITALS: BP 141/68
[2019-07-07] MEDS: ACETAMINOPHEN 500 MG TABLET PO PRN (03:40)
[2019-07-07 04:38] LABS: CALCIUM 8.4 mg/dL (8.5-10.1); CREATININE 4.3 mg/dL (0.6-1.0); GFR 12.8; POTASSIUM 3.9 mmol/L (3.5-5.1)
[2019-07-07 07:00] VITALS: BP 166/80
[2019-07-07] MEDS: PANTOPRAZOLE 40 MG TABLET.DR. PO SCH (08:40)
[2019-07-07] MEDS: LABETALOL HCL 100 MG TABLET. PO SCH ×2 (08:40→21:22)
[2019-07-07] MEDS: ISOSORBIDE MONONITRATE ER 30 MG TAB.ER.24H PO SCH (08:41)
[2019-07-07] MEDS: cloNIDine HCL 0.2 MG TABLET PO SCH ×3 (08:41→21:23)
[2019-07-07] MEDS: amLODIPine BESYLATE 10 MG TABLET PO SCH (08:41)
--- NOTE | 2019-07-07 10:12 | PDOC ---
EBENEZER DE JESUS SATELLITE DISH TECHNICIAN 07/07/19 1012: CARDIO Progress Notes Date and Time Date of Service 07/07/2019 Time of Evaluation 1000 Subjective Subjective: No Chest Pain, No shortness of breath, No Palpitations Vitals Vitals Vital Signs Date Time Temp Pulse Resp B/P (MAP) Pulse Ox O2 Delivery O2 Flow Rate FiO2 07/07/19 08:41 88 166/80 07/07/19 08:00 Room Air 07/07/19 07:00 98.0 20 97 2.0 98.0 Weight Weight [ ] Input and Output Intake and Output Intake and Output 07/07/19 07:00 Intake Total 1100 ml Output Total 400 ml Balance 700 ml Intake Oral 1100 ml Output Urine Total 400 ml # Voids 6 Laboratory Labs Laboratory Tests Test 07/06/19 11:20 07/06/19 16:25 07/07/19 03:10 Glucose (Fingerstick) 177 mg/dL (70-99) 136 mg/dL (70-99) Sodium Level 140 mmol/L (136-145) Potassium Level 3.9 mmol/L (3.5-5.1) Chloride Level 105 mmol/L (98-107) Carbon Dioxide Level 29 mmol/L (21-32) Anion Gap 6 (6-14) Blood Urea Nitrogen 29 mg/dL (7-20) Creatinine 4.3 mg/dL (0.6-1.0) Estimated GFR (Cockcroft-Gault) 12.8 Glucose Level 140 mg/dL (70-99) Calcium Level 8.4 mg/dL (8.5-10.1) Physical Exam HEENT: Neck Supple W Full Motion Chest: Symmetric LUNGS: Clear to Auscultation Heart: S1S2, RRR (SR), murmurs (2/6 systolic murmur ) Abdomen: Soft N/T Extremities: No Edema Neurology: alert, oriented, follow commands, other (anxious about future treatment plans) Assessment Assessment 1. New ESRD. HD has been started Tu 2. Hypertensive urgency: still elevated but better 3. NSTEMI; peak 0.8. Most probably type II, demand ischemia in the setting of THEA. CP free. 4. Chronic systolic CHF with CMP. LVEF 40%.presume NICM but could not completely rule out underlying ischemia. Compensated 4. Hyperlipidemia 5.. Diabetes, II 6. Mild transamintis 7. GERD; PPI Recommendations 1. Recheck LFTs. If much better then will restart lipitor at a lower dose 2. Continue current BP regimen, monitor BP trend and will adjust accordingly per BP post HD today 3. Fluid off loading per HD 4. Discussion for ischemic w/u as an outpt, plan for MPI. Follow up as outpt. DONITA RESTREPO MD 07/07/19 1507: CARDIO Progress Notes Plan Plan Patient seen and case discussed with nurse practitioner. Agree with above nurse practitioner note. This morning as previously noted I tried to speak with the patient again regarding her cardiomyopathy. Unfortunately the patient appeared to be frustrated and did not want to address her cardio myopathy and possible heart catheterization again. She became irate and asked that I come back at a later time. The patient was seen again on hemodialysis and she had notified the nurse that she would prefer to be seen by another bullet casting operator. I advised the patient that I would be available for any further questions and apologized to her for any misunderstanding. I also notified her that one of my colleagues would be by to see her tomorrow and consider discussion of cardiac catheterization as needed. I suspect that due to lack of any significant social support to the patient is likely apprehensive about her multiple medical issues. We have previously asked her to see if she would like us to notify any next of kin and unfortunately she apparently does not have any family that she is close with and did not want us to call anyone. Supportive care for now. Plan as noted above EBENEZER DE JESUS APRN Jul 07, 2019 10:12 DONITA RESTREPO MD Jul 07, 2019 15:07
[2019-07-07 10:35] LABS: ALBUMIN 2.6 g/dL (3.4-5.0); DIRECT BILIRUBIN 0.1 mg/dL (0.0-0.2); TOTAL BILIRUBIN 0.5 mg/dL (0.2-1.0); TOTAL PROTEIN 5.4 g/dL (6.4-8.2)
[2019-07-07] MEDS: HYDROcodone/APAP 5/325MG 1 TAB TABLET PO PRN (10:51)
[2019-07-07] MEDS ORDERED: IV NORMAL SALINE 1000ML BAG 1,000 ML IV PRN ×2 (10:53)
[2019-07-07 10:59] VITALS: BP 115/57
[2019-07-07] MEDS ORDERED: diphenhydrAMINE 50 MG/ML VIAL IV PRN ×2 (11:00)
[2019-07-07] MEDS ORDERED: ALBUMIN HUMAN 25% 200 ML IV PRN (11:00)
[2019-07-07] MEDS ORDERED: DIALYSIS PATIENT. MC PRN ×2 (11:00)
--- NOTE | 2019-07-07 12:04 | PDOC ---
SUBJECTIVE ROS No complaints/concerns today , seen on HD OBJECTIVE Vital Signs Vital Signs Date Time Temp Pulse Resp B/P (MAP) Pulse Ox O2 Delivery O2 Flow Rate FiO2 07/07/19 10:59 98.7 81 20 115/57 (76) 98 Room Air 98.7 07/07/19 10:51 2.0 I & 0 Intake and Output 07/07/19 07:03 Intake Total 1100 ml Output Total 400 ml Balance 700 ml Intake Oral 1100 ml Output Urine Total 400 ml # Voids 6 PHYSICAL EXAM Physical Exam Abdomen: Normal bowel sounds, Soft, No tenderness, No hepatosplenomegaly, No masses Heart: Regular rate, Normal S1, Normal S2, No murmurs, Gallops Extremities: No clubbing, No cyanosis, No edema, Normal pulses, No tenderness/swelling General: Alert, Oriented X3, Cooperative, No acute distress Lungs: Clear to auscultation, Normal air movement Neuro: Normal gait, Normal speech, Normal tone, Sensation intact, Reflexes 2+ Psych/Mental Status: Mental status NL, Mood NL DIAGNOSIS/ASSESSMENT Assessment & Plan New Onset ESRD - initiated on HD on 07/05 (per Dr. Felix) 2 nd treatment today, seen on HD [id number], continue as ordered , Jimmy Velazquez Awaiting OP chair time Access- Tunneled HDc placed on 07/05 HTN- No GRACY on Renal doppler 07/04/19 Chronic systolic HF with CMP. LVEF 40%. Suspect NICM, Diabetes, II COMMENT/RELEVANT DATA Meds Current Medications Medications (Trade) Dose Ordered Sig/Nik Start Time Stop Time Status Last Admin Dose Admin Acetaminophen (Tylenol) 500 mg PRN Q6HRS PRN 07/03/19 10:15 07/07/19 03:40 500 MG Acetaminophen/ Hydrocodone Bitart (Lortab 5/325) 1 tab PRN Q4HRS PRN 07/06/19 14:30 07/07/19 10:51 1 TAB Albumin Human 200 ml @ 200 mls/hr 1X PRN PRN 07/07/19 11:00 07/07/19 16:59 Amlodipine Besylate (Norvasc) 5 mg 1X ONCE 07/05/19 12:15 07/05/19 12:16 DC 07/05/19 12:32 5 MG Aspirin (Renetta Aspirin) 325 mg 1X ONCE 07/02/19 15:15 07/02/19 15:20 DC 07/02/19 15:30 325 MG Carvedilol (Coreg) 25 mg BIDWMEALS 07/02/19 19:00 07/04/19 10:09 DC 07/04/19 09:14 25 MG Cefazolin Sodium 50 ml @ 100 mls/hr 1X ONCE 07/05/19 09:45 07/05/19 10:14 DC 07/05/19 09:55 100 MLS/HR Clonidine HCl (Catapres) 0.2 mg TID 07/02/19 21:00 07/07/19 08:41 0.2 MG Diphenhydramine HCl (Benadryl) 25 mg 1X PRN PRN 07/07/19 11:00 07/08/19 10:59 Famotidine (Pepcid Vial) 20 mg 1X ONCE 07/02/19 17:15 07/02/19 17:16 DC 07/02/19 17:19 20 MG Fentanyl Citrate (Fentanyl 2ml Vial) 100 mcg 1X ONCE 07/05/19 09:45 07/05/19 09:53 DC 07/05/19 09:45 100 MCG Hydralazine HCl (Apresoline Inj) 10 mg PRN Q4HRS PRN 07/02/19 18:30 07/04/19 03:37 10 MG Hydralazine HCl (Apresoline) 100 mg TID 07/04/19 14:00 07/07/19 08:41 100 MG Info (PHARMACY MONITORING -- do not chart) 1 each PRN DAILY PRN 07/07/19 11:00 07/07/19 10:59 DC Isosorbide Mononitrate (Imdur) 30 mg DAILY 07/05/19 12:15 07/07/19 08:41 30 MG Labetalol HCl (Normodyne Iv Push) 20 mg PRN Q3HRS PRN 07/02/19 18:30 07/05/19 08:54 20 MG Labetalol HCl (Trandate) 200 mg BID 07/05/19 09:00 07/07/19 08:40 200 MG Lidocaine/ Epinephrine (LIDOCAINE 1%-EPI 1:100,000 Multi-Dose) 20 ml 1X ONCE 07/05/19 09:45 07/05/19 09:53 DC 07/05/19 09:45 10 ML Midazolam HCl (Versed) 2 mg 1X ONCE 07/05/19 09:45 07/05/19 09:53 DC 07/05/19 09:45 2 MG Pantoprazole Sodium (Protonix) 40 mg DAILYAC 07/05/19 07:30 UNV Sodium Chloride 1,000 ml @ 400 mls/hr Q2H30M PRN 07/07/19 10:53 07/07/19 22:52 Sodium Chloride (Normal Saline Flush) 10 ml 1X PRN PRN 07/05/19 13:15 07/06/19 13:14 DC Sodium Chloride 38.5 meq/Sodium Bicarbonate 100 meq/Sterile Water 1,109.625 ml @ 100 mls/hr Q11H6M 07/03/19 15:00 07/04/19 15:53 DC 07/04/19 03:32 100 MLS/HR Temazepam (Restoril) 15 mg PRN QHS PRN 07/03/19 14:15 07/05/19 23:16 15 MG Lab Laboratory Tests Test 07/06/19 16:25 07/07/19 03:10 Glucose (Fingerstick) 136 mg/dL (70-99) Sodium Level 140 mmol/L (136-145) Potassium Level 3.9 mmol/L (3.5-5.1) Chloride Level 105 mmol/L (98-107) Carbon Dioxide Level 29 mmol/L (21-32) Anion Gap 6 (6-14) Blood Urea Nitrogen 29 mg/dL (7-20) Creatinine 4.3 mg/dL (0.6-1.0) Estimated GFR (Cockcroft-Gault) 12.8 Glucose Level 140 mg/dL (70-99) Calcium Level 8.4 mg/dL (8.5-10.1) Total Bilirubin 0.5 mg/dL (0.2-1.0) Direct Bilirubin 0.1 mg/dL (0.0-0.2) Aspartate Amino Transf (AST/SGOT) 26 U/L (15-37) Alanine Aminotransferase (ALT/SGPT) 64 U/L (14-59) Alkaline Phosphatase 77 U/L (46-116) Total Protein 5.4 g/dL (6.4-8.2) Albumin 2.6 g/dL (3.4-5.0) Results All relevant outside records, renal labs, imaging studies, telemetry/EKG's were reviewed. JAMES MATA MD Jul 07, 2019 12:04
--- NOTE | 2019-07-07 12:14 | PDOC ---
[employer] PROGRESS NOTE Chief Complaint Chief Complaint Acute renal failure on chronic renal failure Dehydration Probable noncompliance with antihypertensives? Hypertensive emergency, elevated troponin and electrolyte disturbance with azotemia, anemia. History of Present Illness History of Present Illness July 03, 2019 Patient seen and examined Her creatinine is down to 4.5 from 5.1 She is still on IV fluids Chart reviewed Discussed with RN 07/04/19 Patient seen and examined Her creatinine actually went up to 4.6 24-hour urine in progress Chart reviewed Discussed with RN She is going need dialysis either this admit or soon 07/05/19 Patient seen and examined Her creatinine clearance is now 11 We are placing a dialysis catheter today to begin dialysis She's a little depressed about this Reviewed chart Discussed with RN 07/06/19 Patient seen and examined She got her first dialysis yesterday after her tunneled catheter was placed Chart reviewed Discussed with RN 07/07/19 Patient seen and examined Seems depressed and a little anxious Discussed with RN Plan is for her to go to dialysis today and tomorrow and then probably home if we can get her chair to Vitals/I&O Vitals/I&O: Vital Signs Date Time Temp Pulse Resp B/P (MAP) Pulse Ox O2 Delivery O2 Flow Rate FiO2 07/07/19 10:59 98.7 81 20 115/57 (76) 98 Room Air 98.7 07/07/19 10:51 2.0 I & O 07/06/19 07/06/19 07/07/19 15:00 23:00 07:00 Intake Total 1100 ml Output Total 400 ml Balance 1100 ml -400 ml Physical Exam General: Alert, Oriented X3, Cooperative, No acute distress Heart: Regular rate, Normal S1, Normal S2, No murmurs, Gallops Lungs: Clear Abdomen: Normal bowel sounds, Soft, No tenderness, No hepatosplenomegaly, No masses Extremities: No clubbing, No cyanosis, No edema, Normal pulses, No tenderness/swelling Skin: No rashes, No breakdown Labs Labs: Laboratory Tests Test 07/06/19 16:25 07/07/19 03:10 Glucose (Fingerstick) 136 mg/dL (70-99) Sodium Level 140 mmol/L (136-145) Potassium Level 3.9 mmol/L (3.5-5.1) Chloride Level 105 mmol/L (98-107) Carbon Dioxide Level 29 mmol/L (21-32) Anion Gap 6 (6-14) Blood Urea Nitrogen 29 mg/dL (7-20) Creatinine 4.3 mg/dL (0.6-1.0) Estimated GFR (Cockcroft-Gault) 12.8 Glucose Level 140 mg/dL (70-99) Calcium Level 8.4 mg/dL (8.5-10.1) Total Bilirubin 0.5 mg/dL (0.2-1.0) Direct Bilirubin 0.1 mg/dL (0.0-0.2) Aspartate Amino Transf (AST/SGOT) 26 U/L (15-37) Alanine Aminotransferase (ALT/SGPT) 64 U/L (14-59) Alkaline Phosphatase 77 U/L (46-116) Total Protein 5.4 g/dL (6.4-8.2) Albumin 2.6 g/dL (3.4-5.0) Assessment and Plan Assessmemt and Plan Acute renal failure on chronic renal failure Dehydration Probable noncompliance with antihypertensives? Hypertensive emergency, elevated troponin and electrolyte disturbance with azotemia, anemia. Plan Started dialysis Nephrology is following Home meds PT OT DVT prophylaxis Full code Appreciate subspecialist input Hopefully she could get a transplant some day Discharge tomorrow after dialysis if we can arrange chair time Comment Review of Relevant I have reviewed the following items roque (where applicable) has been applied. Medications: Current Medications Medications (Trade) Dose Ordered Sig/Nik Route PRN Reason Start Time Stop Time Status Last Admin Dose Admin Acetaminophen/ Hydrocodone Bitart (Lortab 5/325) 1 tab PRN Q4HRS PRN PO MODERATE PAIN 07/06/19 14:30 07/07/19 10:51 SUSAN SOLIS III DO Jul 07, 2019 12:14
--- NOTE | 2019-07-07 12:58 | NUR ---
SW phoned and faxed referral to [facility] Admission. Pt is interseted in [facility]. Pt acceptance and chair time pending. Discussed with pt and RN.
[2019-07-07 19:00] VITALS: BP 137/68
[2019-07-07] MEDS ORDERED: ATORVASTATIN CALCIUM 10 MG TABLET. PO SCH (21:00)
[2019-07-07] MEDS: TEMAZEPAM 15 MG CAPSULE PO PRN (21:24)
[2019-07-07 23:00] VITALS: BP 111/52
[2019-07-08 03:00] VITALS: BP 133/61
--- NOTE | 2019-07-08 06:22 | NUR ---
pt being called for dialysis. lcrn
[2019-07-08] MEDS ORDERED: IV NORMAL SALINE 1000ML BAG 1,000 ML IV PRN ×2 (07:05)
[2019-07-08] MEDS ORDERED: diphenhydrAMINE 50 MG/ML VIAL IV PRN ×2 (07:15)
[2019-07-08] MEDS ORDERED: DIALYSIS PATIENT. MC PRN (07:15)
[2019-07-08 07:58] LABS: CALCIUM 8.2 mg/dL (8.5-10.1); CREATININE 2.8 mg/dL (0.6-1.0); GFR 20.9; POTASSIUM 4.1 mmol/L (3.5-5.1)
[2019-07-08] MEDS ORDERED: ASPIRIN ENTERIC COATED 81 MG TABLET.DR. PO SCH (08:00)
[2019-07-08] MEDS: cloNIDine HCL 0.2 MG TABLET PO SCH ×2 (09:00→12:41)
--- NOTE | 2019-07-08 11:26 | NUR ---
ULICES following pt. Spoke with Antonio at [facility] Admission and they are awaiting to hear back from clinic regarding chair time. Pt's chair time pending. ULICES notified Antonio pt has dc order for today. Left message for RN. ULICES will continue to follow.
--- NOTE | 2019-07-08 12:33 | PDOC ---
CARDIO Progress Notes Date and Time Date of Service 07/08/2019 Time of Evaluation 1220 Subjective Subjective: No Chest Pain, No shortness of breath, No Palpitations Vitals Vitals Vital Signs Date Time Temp Pulse Resp B/P (MAP) Pulse Ox O2 Delivery O2 Flow Rate FiO2 07/08/19 08:00 Room Air 07/08/19 03:00 98.8 87 16 133/61 (85) 94 98.8 07/07/19 10:51 2.0 Weight Weight [ ] Input and Output Intake and Output Intake and Output 07/08/19 07:00 Intake Total 1060 ml Output Total 800 ml Balance 260 ml Intake Oral 1060 ml Output Urine Total 800 ml Laboratory Labs Laboratory Tests Test 07/08/19 07:15 Sodium Level 140 mmol/L (136-145) Potassium Level 4.1 mmol/L (3.5-5.1) Chloride Level 104 mmol/L (98-107) Carbon Dioxide Level 31 mmol/L (21-32) Anion Gap 5 (6-14) Blood Urea Nitrogen 12 mg/dL (7-20) Creatinine 2.8 mg/dL (0.6-1.0) Estimated GFR (Cockcroft-Gault) 20.9 Glucose Level 147 mg/dL (70-99) Calcium Level 8.2 mg/dL (8.5-10.1) Physical Exam HEENT: Neck Supple W Full Motion Chest: Symmetric LUNGS: Clear to Auscultation Heart: S1S2, RRR (SR), murmurs (2/6 systolic murmur ) Abdomen: Soft N/T Extremities: No Edema Neurology: alert, oriented, follow commands, other (anxious about future treatment plans) Assessment Assessment 1. New ESRD. HD has been started Tu 2. Hypertensive urgency: much better 3. NSTEMI; peak 0.8. Most probably type II, demand ischemia in the setting of THEA. CP free. 4. Chronic systolic CHF with CMP. LVEF 40%.presume NICM but could not completel y rule out underlying ischemia. Compensated 4. Hyperlipidemia 5.. Diabetes, II: per PCP 6. Mild transamintis: resolved 7. GERD; PPI 8. Arrhythmia: Brief AFIB paroxysms Recommendations 1. Lipitor, ASA, continue BP regimen including labetolol. would prefer to use metoprolol in lieu of #8 but her BP is well controlled currently with present regimen. Will reeval as an outpt. 2. Fluid off loading per HD. Also ACEi/ARB would be considered once OK with nephrology 3. Discussion for ischemic w/u as an outpt, plan for MPI. Follow up as outpt. 4. MCOT was discussed to rishi further her AFIB burden and educate about its significance and would like to things one at a time and would like to do MPI first then will discuss MCOT further on follow up. 5. Vicky MÁRQUEZ per cardiac standpoint EBENEZER DE JESUS APRN Jul 08, 2019 12:33
[2019-07-08] MEDS: PANTOPRAZOLE 40 MG TABLET.DR. PO SCH (12:40)
[2019-07-08] MEDS: amLODIPine BESYLATE 10 MG TABLET PO SCH (12:41)
[2019-07-08] MEDS: ISOSORBIDE MONONITRATE ER 30 MG TAB.ER.24H PO SCH (12:41)
[2019-07-08] MEDS: LABETALOL HCL 100 MG TABLET. PO SCH (12:42)
[2019-07-08] MEDS: HYDROcodone/APAP 5/325MG 1 TAB TABLET PO PRN (12:44)
--- NOTE | 2019-07-08 13:06 | PDOC ---
SUBJECTIVE ROS Dialyzed without any complaints this am OBJECTIVE Vital Signs Vital Signs Date Time Temp Pulse Resp B/P (MAP) Pulse Ox O2 Delivery O2 Flow Rate FiO2 07/08/19 12:44 94 Room Air 2.0 07/08/19 12:42 87 133/61 07/08/19 03:00 98.8 16 98.8 I & 0 Intake and Output 07/08/19 07:00 Intake Total 1060 ml Output Total 800 ml Balance 260 ml Intake Oral 1060 ml Output Urine Total 800 ml PHYSICAL EXAM Physical Exam Abdomen: Normal bowel sounds, Soft, No tenderness, No hepatosplenomegaly, No masses Heart: Regular rate, Normal S1, Normal S2, No murmurs, Gallops Extremities: No clubbing, No cyanosis, No edema, Normal pulses, No tenderness/swelling General: Alert, Oriented X3, Cooperative, No acute distress Lungs: Clear to auscultation, Normal air movement Neuro: Normal gait, Normal speech, Normal tone, Sensation intact, Reflexes 2+ Psych/Mental Status: Mental status NL, Mood NL DIAGNOSIS/ASSESSMENT Assessment & Plan New Onset ESRD - initiated on HD on 07/05 (per Dr. Felix) 3 rd treatment today, [id number] well, Jimmy Swartz Awaiting OP chair time Access- Tunneled HDc placed on 07/05 HTN- No GRACY on Renal doppler 07/04/19 Chronic systolic HF with CMP. LVEF 40%. Suspect NICM, Diabetes, II COMMENT/RELEVANT DATA Meds Current Medications Medications (Trade) Dose Ordered Sig/Nik Start Time Stop Time Status Last Admin Dose Admin Acetaminophen (Tylenol) 500 mg PRN Q6HRS PRN 07/03/19 10:15 07/07/19 03:40 500 MG Acetaminophen/ Hydrocodone Bitart (Lortab 5/325) 1 tab PRN Q4HRS PRN 07/06/19 14:30 07/08/19 12:44 1 TAB Albumin Human 200 ml @ 200 mls/hr 1X PRN PRN 07/07/19 11:00 07/07/19 16:59 DC Amlodipine Besylate (Norvasc) 5 mg 1X ONCE 07/05/19 12:15 07/05/19 12:16 DC 07/05/19 12:32 5 MG Aspirin (Renetta Aspirin) 325 mg 1X ONCE 07/02/19 15:15 07/02/19 15:20 DC 07/02/19 15:30 325 MG Aspirin (Ecotrin) 81 mg [id number] 07/08/19 08:00 07/08/19 12:40 81 MG Atorvastatin Calcium (Lipitor) 10 mg QHS 07/07/19 21:00 07/07/19 21:23 10 MG Carvedilol (Coreg) 25 mg BIDWMEALS 07/02/19 19:00 07/04/19 10:09 DC 07/04/19 09:14 25 MG Cefazolin Sodium 50 ml @ 100 mls/hr 1X ONCE 07/05/19 09:45 07/05/19 10:14 DC 07/05/19 09:55 100 MLS/HR Clonidine HCl (Catapres) 0.2 mg TID 07/02/19 21:00 07/08/19 12:41 0.2 MG Diphenhydramine HCl (Benadryl) 25 mg 1X PRN PRN 07/08/19 07:15 07/08/19 19:00 Famotidine (Pepcid Vial) 20 mg 1X ONCE 07/02/19 17:15 07/02/19 17:16 DC 07/02/19 17:19 20 MG Fentanyl Citrate (Fentanyl 2ml Vial) 100 mcg 1X ONCE 07/05/19 09:45 07/05/19 09:53 DC 07/05/19 09:45 100 MCG Hydralazine HCl (Apresoline Inj) 10 mg PRN Q4HRS PRN 07/02/19 18:30 07/04/19 03:37 10 MG Hydralazine HCl (Apresoline) 100 mg TID 07/04/19 14:00 07/08/19 12:42 100 MG Info (PHARMACY MONITORING -- do not chart) 1 each PRN DAILY PRN 07/08/19 07:15 UNV Isosorbide Mononitrate (Imdur) 30 mg DAILY 07/05/19 12:15 07/08/19 12:41 30 MG Labetalol HCl (Normodyne Iv Push) 20 mg PRN Q3HRS PRN 07/02/19 18:30 07/05/19 08:54 20 MG Labetalol HCl (Trandate) 200 mg BID 07/05/19 09:00 07/08/19 12:42 200 MG Lidocaine/ Epinephrine (LIDOCAINE 1%-EPI 1:100,000 Multi-Dose) 20 ml 1X ONCE 07/05/19 09:45 07/05/19 09:53 DC 07/05/19 09:45 10 ML Midazolam HCl (Versed) 2 mg 1X ONCE 07/05/19 09:45 07/05/19 09:53 DC 07/05/19 09:45 2 MG Pantoprazole Sodium (Protonix) 40 mg DAILYAC 07/05/19 07:30 UNV Sodium Chloride 1,000 ml @ 400 mls/hr Q2H30M PRN 07/08/19 07:05 07/08/19 19:04 Sodium Chloride (Normal Saline Flush) 10 ml 1X PRN PRN 07/05/19 13:15 07/06/19 13:14 DC Sodium Chloride 38.5 meq/Sodium Bicarbonate 100 meq/Sterile Water 1,109.625 ml @ 100 mls/hr Q11H6M 07/03/19 15:00 07/04/19 15:53 DC 07/04/19 03:32 100 MLS/HR Temazepam (Restoril) 15 mg PRN QHS PRN 07/03/19 14:15 07/07/19 21:24 15 MG Lab Laboratory Tests Test 07/08/19 07:15 Sodium Level 140 mmol/L (136-145) Potassium Level 4.1 mmol/L (3.5-5.1) Chloride Level 104 mmol/L (98-107) Carbon Dioxide Level 31 mmol/L (21-32) Anion Gap 5 (6-14) Blood Urea Nitrogen 12 mg/dL (7-20) Creatinine 2.8 mg/dL (0.6-1.0) Estimated GFR (Cockcroft-Gault) 20.9 Glucose Level 147 mg/dL (70-99) Calcium Level 8.2 mg/dL (8.5-10.1) Results All relevant outside records, renal labs, imaging studies, telemetry/EKG's were reviewed. JAMES MATA MD Jul 08, 2019 13:06
[2019-07-08 14:17] VITALS: BP 114/58
--- NOTE | 2019-07-08 15:27 | NUR ---
Pt has chair time at [facility] , and Sat at 1115. First date of HD will be tomorrow at 1045. Pt is provided with copy of her schedule. RN notified.
[2019-07-08] MEDS ORDERED: AMLO10TA4 PO (16:17)
[2019-07-08] MEDS ORDERED: HYDR100T24 PO (16:17)
[2019-07-08] MEDS ORDERED: ISOS30TA4 PO (16:17)
[2019-07-08] MEDS ORDERED: ASPI81TA59 PO (16:18)
[2019-07-08] MEDS ORDERED: PANT20TA2 PO (16:18)
[2019-07-08] MEDS ORDERED: LABE200T4 PO (16:18)
[2019-07-08] MEDS ORDERED: ATOR10TA60 PO (16:20)
--- NOTE | 2019-07-08 17:31 | NUR ---
Discharge Note: STACY PENA FREEHOLD Discharge instructions and discharge home medications reviewed with Patient and a copy given. All questions have been answered and understanding verbalized. Scripts called into [facility] pharmacy. Pt given education on dialysis, dressing changes, renal diet, and new medications. Verbalized understanding.
--- NOTE | 2019-07-12 11:38 | DS ---
DATE OF DISCHARGE: 07/08/2019 ADMISSION DIAGNOSES: Chest pain and acute renal failure. DISCHARGE DIAGNOSIS: New initiation of dialysis. HOSPITAL COURSE: The patient is a pleasant 59-year-old female who presented with chest pain and acute renal failure. She was admitted. We gave her IV fluids, but her creatinine plateaued at around 4, which gave her creatinine clearance of close to 15. She was started on dialysis. We did 3 dialyses and discharged her home. DISPOSITION: Home. ACTIVITY: As tolerated. DIET: Low sodium. MEDICATIONS: Please see MRAD. TOTAL TIME: 34 minutes. ROBERTL Deanne SOLIS DO DR: MORENO/alfredo JOB#: [id number] / [id number]
== END 2019-07-08 17:33 | disposition home or self-care (01) | DRG 673 ==
LOC: ER 15:01 → 2 NORTH 16:53
PROVIDERS: ADMIT Internal Medicine; ATTEND Internal Medicine
PROC: 0JH63XZ Insertion of Tunneled Vascular Access Device into Chest Subcutaneous Tissue and Fascia, Percutaneous Approach (ICD-10-PCS; principal; 2019-07-05)
PROC: 02H633Z Insertion of Infusion Device into Right Atrium, Percutaneous Approach (ICD-10-PCS; 2019-07-05)
PROC: B548ZZA Ultrasonography of Superior Vena Cava, Guidance (ICD-10-PCS; 2019-07-05)
PROC: 5A1D70Z Performance of Urinary Filtration, Intermittent, Less than 6 Hours Per Day (ICD-10-PCS; 2019-07-05)
PROC: 5A1D70Z Performance of Urinary Filtration, Intermittent, Less than 6 Hours Per Day (ICD-10-PCS; 2019-07-07)
PROC: 5A1D70Z Performance of Urinary Filtration, Intermittent, Less than 6 Hours Per Day (ICD-10-PCS; 2019-07-08)
DX: N17.0 Acute kidney failure with tubular necrosis (principal); I21.4 Non-ST elevation (NSTEMI) myocardial infarction; I13.2 Hypertensive heart and chronic kidney disease with heart failure and with stage 5 chronic kidney disease, or end stage renal disease; I16.1 Hypertensive emergency; E87.2 Acidosis; I50.22 Chronic systolic (congestive) heart failure; I42.8 Other cardiomyopathies; N18.6 End stage renal disease; E11.22 Type 2 diabetes mellitus with diabetic chronic kidney disease; K21.9 Gastro-esophageal reflux disease without esophagitis; E78.00 Pure hypercholesterolemia, unspecified; D64.9 Anemia, unspecified; E78.5 Hyperlipidemia, unspecified; E86.0 Dehydration; I48.0 Paroxysmal atrial fibrillation; Z83.3 Family history of diabetes mellitus
CPT/HCPCS: 36415; 36558; 71046; 76770; 76937; 77001; 80048; 80053; 80061; 80076; 81001; 82553; 82962; 83735; 84484; 85025; 85379; 85610; 85730; 86704; 86706; 87340; 93005; 93306; 99152; C1750; C1769; C1892; J0360; J0690; J2250; J3010; J3490; J7030; 99285-25; G0378